=== PATIENT | female | born 1965 | race Hispanic/Latino ===

== ENCOUNTER 2017-10-05 21:25 | Emergency (ER) | payer BC, OTHER ==
[~2017-10-05] VITALS: Ht 157.5 cm; Wt 102.5 kg
[~2017-10-05 21:25] MED LIST: CELEXA PO; GLIPIZIDE PO; HUMALOG100 UNIT/1 SQ; LISINOPRIL10 MG PO; METFORMIN HCL500 MG PO; NAPROXEN250 MG PO; NORCO 7.5-3251 EACH PO
[2017-10-05] MEDS ORDERED: KETOROLAC TROMETHAMINE 30 MG/ML VIAL IV STA (22:04)
[2017-10-05] MEDS ORDERED: ONDANSETRON HCL INJ 2 MG/ML VIAL IV STA (22:04)
[2017-10-05] MEDS ORDERED: ALBUTEROL/IPRATROPIUM 3 ML NEB NEB ONE (22:15)
[2017-10-05] MEDS ORDERED: ASPIRIN 81 MG CHEW TAB PO ONE (22:15)
[2017-10-05] MEDS ORDERED: SODIUM CHLORIDE 0.9% 1000ML 1,000 ML IV SCH (22:30)
[2017-10-05 22:31] LABS: BASOPHILS # (AUTO) 0.1 (0.0-0.1); BASOPHILS % 0.8 % (0.0-1.0); EOSINOPHILS # (AUTO) 0.1 (0.0-0.4); EOSINOPHILS % 0.8 % (0.0-6.0); HEMOGLOBIN 12.7 g/dL (12.0-16.0); LYMPHOCYTES # (AUTO) 2.2 (1.0-3.2); LYMPHOCYTES % 28.6 % (18.0-39.1); MEAN CORPUSCULAR HEMOGLOBIN 29.6 pg (28-32); MEAN CORPUSCULAR HGB CONC 31.8 g/dL (31-35); MEAN CORPUSCULAR VOLUME 93.2 fL (81-99); MONOCYTES # (AUTO) 0.8 (0.2-0.8); MONOCYTES % 10.2 % (4.4-11.3); NEUTROPHILS # (AUTO) 4.7 (2.1-6.9); NEUTROPHILS % 59.3 % (38.7-80.0); PLATELET COUNT 222 x10e3/uL (140-360); RED BLOOD COUNT 4.29 x10e6/uL (3.6-5.1)
[2017-10-05 22:48] LABS: ALANINE AMINOTRANSFERASE 60 IU/L (0-55); ALBUMIN 3.9 g/dL (3.5-5.0); ALBUMIN/GLOBULIN RATIO 1.2 (0.8-2.0); ALKALINE PHOSPHATASE 59 IU/L (40-150); ANION GAP 12.8 mmol/L (8-16); BLOOD UREA NITROGEN 13 mg/dL (7-26); BUN/CREATININE RATIO 18 (6-25); CALCIUM 9.3 mg/dL (8.4-10.2); CARBON DIOXIDE 24 mmol/L (22-29); CHLORIDE 109 mmol/L (98-107); CREATINE KINASE 96 IU/L (29-168); CREATININE, SERUM 0.73 mg/dL (0.57-1.11); EST GLOMERULAR FILTRATION RATE > 60 ML/MIN (60-); GLUCOSE 185 mg/dL (74-118); POTASSIUM 3.8 mmol/L (3.5-5.1); SODIUM 142 mmol/L (136-145)
[2017-10-05 22:55] LABS: TROPONIN I 0.002 ng/mL (0-0.300)
--- NOTE | 2017-10-05 22:56 | Diagnostic Imaging Report ---
EXAM: CHEST 2 VIEWS, PA and lateral ORDER DATE: 10/05/2017 10:04 PM TIME STAMP ON EXAM: 2232 hours INDICATION: Cough, chest pain COMPARISON: PA and lateral view of the chest December 20, 2016 FINDINGS: LINES/TUBES: None LUNGS: No consolidations or edema. PLEURA: No effusions or pneumothorax. HEART AND MEDIASTINUM: Normal size and contour. BONES AND SOFT TISSUES: Lower cervical spine surgical hardware. Surgical clips upper abdomen seen on lateral view. IMPRESSION: No acute thoracic abnormality. Signed by: Dr. Sachi Harley M.D. on 10/05/2017 10:53 PM
[2017-10-05] MEDS ORDERED: METHYLPREDNISOLONE SOD SUCC 125 MG/2ML VIAL IV ONE (23:15)
[2017-10-05] MEDS ORDERED: SUCRALFATE1 GM PO (23:24)
[2017-10-05] MEDS ORDERED: GLIPIZIDE5 MG PO (23:24)
[2017-10-05] MEDS ORDERED: NOVOLOG100 UNIT/1 SC (23:24)
[2017-10-05] MEDS ORDERED: CITALOPRAM HBR20 MG PO (23:24)
[2017-10-05] MEDS ORDERED: ULTRAM50 MG PO (23:24)
[2017-10-05] MEDS ORDERED: GABAPENTIN100 MG PO (23:24)
[2017-10-05] MEDS ORDERED: OMEPRAZOLE40 MG PO (23:24)
[2017-10-06 01:27] VITALS: BP 147/65
== END 2017-10-06 01:28 | disposition home or self-care (01) ==
LOC: ER 21:25
DX: R07.89 Other chest pain (principal); R05 Cough; R11.2 Nausea with vomiting, unspecified; J20.9 Acute bronchitis, unspecified; I10 Essential (primary) hypertension; E11.9 Type 2 diabetes mellitus without complications; Z87.891 Personal history of nicotine dependence
CPT/HCPCS: 36415; 71020; 80053; 82550; 82553; 83880; 84484; 85025; 85379; 87400; 93005; 94640; 99284; J1885; J2405; J2930; J7030; 71046

== ENCOUNTER 2017-12-12 13:33 | Emergency (ER) | payer OTHER ==
[~2017-12-12] VITALS: Ht 157.5 cm; Wt 104.3 kg
[~2017-12-12 13:33] MED LIST changes: +CITALOPRAM HBR20 MG PO; +GABAPENTIN100 MG PO; +GLIPIZIDE5 MG PO; +NOVOLOG100 UNIT/1 SC; +OMEPRAZOLE40 MG PO; +SUCRALFATE1 GM PO; +ULTRAM50 MG PO
--- OUTSIDE RECORDS SUMMARY | 2017-12-12 13:37 | XMS REPORT ---
Author Author [facility] Address Unknown Phone Unavailable Care Team Providers Care Pin Drafting Machine Operator Name Role Phone LISA VARELA Unavailable Unavailable Problems This patient has no known problems. Allergies, Adverse Reactions, Alerts This patient has no known allergies or adverse reactions. Medications This patient has no known medications. Results Test Description Test Time Test Comments Text Results Atomic Results Result Comments CHEST 2 VIEWS [place] [address] [place], [place] [address] Patient Name: PREMA RASHEED MR #: [id number] : 1965 Age/Sex: 52/F Req #: [id number] Adm Physician: Ordered by: LISA VARELA MD Report #: [id number] Location: ER Room/Bed: Procedure: [id number] DX/CHEST 2 VIEWS Exam Date: 10/05/17 Exam Time: 2220 REPORT STATUS: Signed EXAM: CHEST 2 VIEWS, PA and lateral ORDER DATE: 10/05/2017 10:04 PM TIME STAMP ON EXAM: 2232 hours INDICATION: Cough, chest pain COMPARISON: PA and lateral view of the chest December 20, 2016 FINDINGS: LINES/TUBES: None LUNGS: No consolidations or edema. PLEURA: No effusions or pneumothorax. HEART AND MEDIASTINUM: Normal size and contour. BONES AND SOFT TISSUES: Lower cervical spine surgical hardware. Surgical clips upper abdomen seen on lateral view. IMPRESSION: No acute thoracic abnormality. Signed by: Dr. Juan Antonio Aquino M.D. on 10/05/2017 10:53 PM Dictated By: JUAN ANTONIO AQUINO MD 52 Transcribed By: CARLOS on 2252 COPY TO: LISA VARELA MD
--- OUTSIDE RECORDS SUMMARY | 2017-12-12 13:37 | XMS REPORT | Continuity of Care Document ---
Author Author [facility] Organization [facility] Address [address] [address] Phone Unavailable Care Team Providers Care Picture Enlarger Name Role Phone DESI STEELE MD PCP Insurance Providers Guarantor Prema Eldridge Address [address] [place] [address] Email [email or web address] Payer Miscellaneous Ppo Policy Number [id number] Subscriber's Name Prema Eldridge C Relationship 18 Self / Same As Patient Advance Directives Directive Response Recorded Date/Time Does the patient have an advance directive? No 12/22/16 1:23pm If yes, is advance directive on file with [facility]? No 11/29/10 8:09am If not on file with [facility] will patient provide a copy? Yes 10/05/17 10:24pm Do you have a Directive to Physician? No 10/05/17 10:24pm Do you have a Medical Power of Customer Advocate? No 10/05/17 10:24pm Do you have an out of hospital Do Not Resuscitate Order? No 10/05/17 10:24pm Do you have any special needs we should be aware of? No 10/05/17 10:24pm Do you have a support person here with you today? Yes 10/05/17 10:24pm Did patient receive Notice of Privacy Practices? Yes 10/05/17 10:24pm Did patient receive patient rights and responsibilities? Yes 10/05/17 10:24pm Problems No problem information available. Medications Current Home Medications Medication Dose Units Route Directions Days Qty Instructions Start Date Celexa Oral Daily UNKNOWN DOSE Citalopram Hydrobromide (Citalopram Hbr) 20 Mg Tablet 40 Mg Oral Daily Gabapentin 100 Mg Capsule 1 Cap Oral Twice A Day Glipizide Oral Twice A Day UNKNOWN DOSE Glipizide 5 Mg Tablet 5 Mg Oral Daily Hydrocodone Bit/Acetaminophen ([place] 7.5-325 Tablet) 1 Each Tablet 1-2 Ea Oral Every 6 Hours as needed for Pain Insulin Aspart (Novolog) 100 Unit/1 Ml Cartridge 30 Units Subcutaneously Twice A Day Insulin Lispro (Humalog) 100 Unit/1 Ml Cartridge 20 Units Sub-Q Twice A Day Lisinopril 10 Mg Tablet 10 Mg Oral Daily 30 Tab Metformin Hcl 500 Mg Tablet 1,000 Mg Oral Twice A Day 60 Tab Naproxen 250 Mg Tablet 500 Mg Oral Twice A Day Omeprazole 40 Mg Capsule.dr 1 Cap Oral Twice A Day Sucralfate 1 Gm Tablet 1 Gm Oral Twice A Day Tramadol Hcl (Ultram) 50 Mg Tablet 50 Mg Oral Every 6 Hours as needed for Pain Social History Social History Problem Response Recorded Date/Time Onset Date Status Hx Psychiatric Problems No 12/22/2016 1:23pm Not Applicable Not Applicable Smoking Status Start Date Stop Date Former smoker Hospital Discharge Instructions No hospital discharge instruction information available. Plan of Care Discharge Date 10/06/17 1:28am Disposition HOME, SELF-CARE Condition at Discharge Stable Instructions/Education Provided Bronchitis (Acute) - Adult Forms Provided Work/School Excuse Prescriptions See Medication Section Referrals DESI STEELE MD Order Date: Call for an appointment Address: [address] [place] [id number] Additional Instructions/Education FOLLOW UP WITH YOUR PRIMARY CARE DOCTOR ON MONDAY ADMINISTER MEDICATIONS ORDERED BY DOCTOR GARCIA IF SYMPTOMS WORSEN Functional Status No functional status information available. Allergies, Adverse Reactions, Alerts Allergen Type Severity Reaction Status Last Updated Morphine Allergy Unknown itch Active 12/21/16 TUNAFISH Allergy Unknown rash, diarrhea Active 12/21/16 Immunizations No immunization information available. Vital Signs Acute Vital Signs Vital Response Date/Time Temperature (Fahrenheit) 99.7 degrees F (97.6 - 99.5) 10/06/2017 1:27am Pulse Pulse Rate (adult) 94 bpm (60 - 90) 10/06/2017 1:27am Respiratory Rate 18 bpm (12 - 24) 10/06/2017 1:27am Blood Pressure 147/65 mm Hg 10/06/2017 1:27am Height 5 ft 2 in 10/05/2017 9:33pm Weight 226 lb 10/05/2017 9:33pm Body Mass Index 41.3 kg/m^2 10/05/2017 9:33pm Results Laboratory Results Test Name Result Units Flags Reference Collection Date/Time Result Date/ Time Comments Prothrombin Time 11.8 seconds L 11.9-14.5 12/20/2016 11:40am 12/20/2016 12:07pm Prothromb Time International Ratio 0.83 12/20/2016 11:40am 2016 12:07pm Oral Anticoagulant Therapy INR Values: 1. Low Intensity Therapy 1.5 - 2.0 2. Moderate Intensity Therapy 2.0 - 3.0 3. High Intensity Therapy(1) 2.5 - 3.5 4. High Intensity Therapy(2) 3.0 - 4.0 5. Panic Value INR > 5.0 Activated Partial Thromboplast Time 26.3 seconds 23.8-35.5 12/20/2016 11 :40am 12/20/2016 12:07pm Bedside Glucose 133 mg/dL H 70-120 12/23/2016 7:44am 12/23/2016 7:52am Meter ID: [id number] White Blood Count 7.83 x10e3/uL 4.8-10.8 10/05/2017 9:50pm 10/05/2017 10:33pm Red Blood Count 4.29 x10e6/uL 3.6-5.1 10/05/2017 9:50pm 10/05/2017 10: 33pm Hemoglobin 12.7 g/dL 12.0-16.0 10/05/2017 9:50pm 10/05/2017 10:33pm Hematocrit 40.0 % 34.2-44.1 10/05/2017 9:50pm 10/05/2017 10:33pm Mean Corpuscular Volume 93.2 fL 81-99 10/05/2017 9:50pm 10/05/2017 10: 33pm Mean Corpuscular Hemoglobin 29.6 pg 28-32 10/05/2017 9:50pm 10/05/2017 10:33pm Mean Corpuscular Hemoglobin Concent 31.8 g/dL 31-35 10/05/2017 9:50pm 10/05/2017 10:33pm Red Cell Distribution Width 13.0 % 11.7-14.4 10/05/2017 9:50pm 2017 10:33pm Platelet Count 222 x10e3/uL 140-360 10/05/2017 9:50pm 10/05/2017 10: 33pm Neutrophils (%) (Auto) 59.3 % 38.7-80.0 10/05/2017 9:50pm 10/05/2017 10 :33pm Lymphocytes (%) (Auto) 28.6 % 18.0-39.1 10/05/2017 9:50pm 10/05/2017 10 :33pm Monocytes (%) (Auto) 10.2 % 4.4-11.3 10/05/2017 9:50pm 10/05/2017 10: 33pm Eosinophils (%) (Auto) 0.8 % 0.0-6.0 10/05/2017 9:50pm 10/05/2017 10: 33pm Basophils (%) (Auto) 0.8 % 0.0-1.0 10/05/2017 9:50pm 10/05/2017 10: 33pm IM GRANULOCYTES % 0.3 % 0.0-1.0 10/05/2017 9:50pm 10/05/2017 10:33pm Neutrophils # (Auto) 4.7 2.1-6.9 10/05/2017 9:50pm 10/05/2017 10: 33pm Lymphocytes # (Auto) 2.2 1.0-3.2 10/05/2017 9:50pm 10/05/2017 10: 33pm Monocytes # (Auto) 0.8 0.2-0.8 10/05/2017 9:50pm 10/05/2017 10:33pm Eosinophils # (Auto) 0.1 0.0-0.4 10/05/2017 9:50pm 10/05/2017 10: 33pm Basophils # (Auto) 0.1 0.0-0.1 10/05/2017 9:50pm 10/05/2017 10:33pm Absolute Immature Granulocyte (auto 0.02 x10e3/uL 0-0.1 10/05/2017 9: 50pm 10/05/2017 10:33pm D-Dimer Quantitative (PE/DVT) 0.21 ug/mLFEU 0.00-0.45 10/05/2017 9:50pm 10/05/2017 10:44pm As with all in vitro diagnostic tests, the test results should be interpreted by the physician in conjunction with clinical findings and other test results. Test results are reported in NEW D-dimer units(ug/mLFEU). Sodium Level 142 mmol/L 136-145 10/05/2017 9:50pm 10/05/2017 10:49pm Potassium Level 3.8 mmol/L 3.5-5.1 10/05/2017 9:50pm 10/05/2017 10: 49pm Chloride Level 109 mmol/L H 98-107 10/05/2017 9:50pm 10/05/2017 10:49pm Influenza Virus Types A,B Antigen NEGATIVE NEGATIVE 10/05/2017 9:50pm 10/06/2017 12:19am Carbon Dioxide Level 24 mmol/L 22-10/05/2017 9:50pm 10/05/2017 10: 49pm Anion Gap 12.8 mmol/L 8-16 10/05/2017 9:50pm 10/05/2017 10:49pm Blood Urea Nitrogen 13 mg/dL 7-26 10/05/2017 9:50pm 10/05/2017 10:49pm Creatinine 0.73 mg/dL 0.57-1.11 10/05/2017 9:50pm 10/05/2017 10:49pm BUN/Creatinine Ratio 18 6-25 10/05/2017 9:50pm 10/05/2017 10:49pm Estimat Glomerular Filtration Rate > 60 ML/MIN 60- 10/05/2017 9:50pm 10:49pm Ranges were taken from the National Kidney Disease Education Program and the National Kidney Foundation literature. Reference ranges: 60 or greater: Normal 16-59 (for 3 consecutive months): Chronic kidney disease 15 or less: Kidney failure Glucose Level 185 mg/dL H 74-118 10/05/2017 9:50pm 10/05/2017 10:49pm Calcium Level 9.3 mg/dL 8.4-10.2 10/05/2017 9:50pm 10/05/2017 10:49pm Total Bilirubin 0.4 mg/dL 0.2-1.2 10/05/2017 9:50pm 10/05/2017 10:49pm Aspartate Amino Transf (AST/SGOT) 47 IU/L H 5-34 10/05/2017 9:50pm 10/05 10:49pm Alanine Aminotransferase (ALT/SGPT) 60 IU/L H 0-55 10/05/2017 9:50pm 09/2017 10:49pm Total Protein 7.2 g/dL 6.5-8.1 10/05/2017 9:50pm 10/05/2017 10:49pm Albumin 3.9 g/dL 3.5-5.0 10/05/2017 9:50pm 10/05/2017 10:49pm Globulin 3.3 g/dL 2.3-3.5 10/05/2017 9:50pm 10/05/2017 10:49pm Albumin/Globulin Ratio 1.2 0.8-2.0 10/05/2017 9:50pm 10/05/2017 10: 49pm Alkaline Phosphatase 59 IU/L 40-150 10/05/2017 9:50pm 10/05/2017 10: 49pm B-Type Natriuretic Peptide 15.6 pg/mL 0-100 10/05/2017 9:50pm 2017 10:55pm Creatine Kinase 96 IU/L 29-168 10/05/2017 9:50pm 10/05/2017 10:49pm Creatine Kinase MB 2.50 ng/mL 0.00-5.00 10/05/2017 9:50pm 10/05/2017 10 :55pm Troponin I 0.002 ng/mL 0-0.300 10/05/2017 9:50pm 10/05/2017 10:55pm Procedures Procedure Status Date Provider(s) SP BONE ALGRFT STRUCT ADD-ON Completed 12/22/16 JAKE BASS MD NECK SPINE FUSE&REMOV BEL C2 Completed 12/22/16 JAKE BASS MD X-ray of chest, two views Active 12/20/16 JAKE BASS MD X-ray of chest, two views Active 10/05/17 LISA VARELA MD Encounters Encounter Location Arrival/Admit Date Discharge/Depart Date Attending Provider Registered Emergency Room [facility] 10/05/17 9:25pm LISA VARELA MD Discharged Inpatient (obs) [facility] 12/22/16 12:47pm 9:27am JAKE BASS MD
--- OUTSIDE RECORDS SUMMARY | 2017-12-12 13:37 | XMS REPORT ---
Author Organization Unknown Address [address] [place] [address] Phone [phone] Care Team Providers Care Truck Engine Assembler Name Role Phone DR. FLY BLAKE 3 [phone] Allergies Code Code System Name Reaction Severity Status Onset 7052 RxNorm Morphine Active Tuna Oil Active Medications Name Status Start Date Stop Date atorvastatin 10 mg tablet Active Not available Augmentin 875 mg-125 mg tablet Take 1 tablet every 12 hours by oral route as directed for 10 days. Active Not available azithromycin 250 mg tablet Completed 10/09/2017 BD Ultra-Fine Lorna Pen Needle Active Not available BD Ultra-Fine Lorna Pen Needle 32 gauge x 5/32" Active Not available Bromfed DM 2 mg-30 mg-10 mg/5 mL syrup Take 10 mL every 6-8 hours by oral route as needed for 5 days. Completed 10/09/2017 Cheratussin AC 10 mg-100 mg/5 mL oral liquid 1 TEASPOON EVERY 6 HRS PRN - FROM ER Completed 11/22/2017 citalopram 40 mg tablet Active Not available estradiol 0.01% (0.1 mg/gram) vaginal cream Active Not available fluticasone 50 mcg/actuation nasal spray,suspension [place] 1 spray twice a day by intranasal route as directed for 14 days. Active Not available gabapentin 100 mg capsule Take 1 capsule every day by oral route. Active Not available glipizide 5 mg tablet Active Not available hydroxyzine HCl 25 mg tablet Take 1 tablet every day by oral route at bedtime. Active Not available levofloxacin 500 mg tablet QD - FROM ER Completed 10/16/2017 lisinopril 10 mg tablet Active Not available metformin 1,000 mg tablet Active Not available xqhhnygd-hqxkjcztn-obykhylsk 3.5 mg-10,000 unit/mL-1 % ear drops,susp INSTILL 4 DROPS INTO AFFECTED EAR(S) BY OTIC ROUTE 3 TIMES PER DAY FOR 7 DAYS Active Not available Novolog Flexpen U-100 Insulin aspart 100 unit/mL subcutaneous Active Not available omeprazole 40 mg capsule,delayed release Take 1 capsule every day by oral route. Active Not available prednisone 20 mg tablet QD - FROM ER Completed 10/16/2017 ProAir HFA 90 mcg/actuation aerosol inhaler Active Not available sucralfate 1 gram tablet Take 1 tablet every day by oral route. Active Not available sulfamethoxazole 800 mg-trimethoprim 160 mg tablet Completed 12/06/2017 Tessalon Perles 100 mg capsule Take 1 capsule 3 times a day by oral route as needed for 10 days. Active Not available Tradjenta 5 mg tablet Active Not available tramadol 50 mg tablet Take 1 tablet twice a day by oral route. Active Not available Problems Name Status Onset Date Source Type 2 Diabetes Mellitus Active 09/19/2017 Major Depressive Disorder Active 09/19/2017 Benign Essential Hypertension Active 09/19/2017 Gastroesophageal Reflux Disease Active 09/19/2017 Asthma Active 10/16/2017 Procedures Date Name Performed by 09/04/2016 Other Information not available 09/04/2015 Other Information not available 09/04/2015 Colonoscopy Notes: REPEAT IN 5 YRS PER PT Information not available Neck Spine Disk Surgery Information not available Back Surgery Information not available Appendectomy Information not available Cholecystectomy Information not available Hernia Repair Notes: X3 Information not available Partial Hysterectomy Information not available Carpal Tunnel Surgery Notes: BOTH HANDS Information not available Eye Surgery Notes: BOTH Information not available 10/16/2017 CT, Abdomen + Pelvis, W/ Contrast [facility] [address] [address] (Work [address]) Notes: HEARING IMPLANT (RIGHT) TENDON REPAIR (LEFT ARM) Lab Results Date Name Specimen Result Interpretation Description Value Range Status Address 09/19/2017 CBC W/ Auto Diff Wbc 6.46 x10*3/L 3.98-10.04 x10*3/ L Final [facility]: [address] Rbc 4.38 10*12/L 3.93-5.22 10*12/L Final [facility]: [address] Hemoglobin 13.00 g/dL 11.20-15.70 g/dL Final [facility]: [address] Hematocrit 40.8 % 34.1-44.9 % Final [facility]: [address] [place] Mcv 93.2 fL 80.0-100.0 fL Final [facility]: [address] [place] Mch 29.7 pg 25.6-32.2 pg Final [facility]: [address] [place] Low Mchc 31.9 g/dL 32.2-35.5 g/dL Final [facility]: [address] [place] RDW-SD 43.7 fL 36.4-46.3 fL Final [facility] [facility] Count 243.0 k/uL 182.0-369.0 k/uL Final [facility]: [address] [place] High Mpv 12.9 fL 7.5-11.5 fL Final [facility]: [address] [place] Neut% 53.6 % 34.0-71.1 % Final [facility]: [address] [place] Lymph% 34.7 % 19.3-51.7 % Final [facility]: [address] [place] Mon% 10.4 % 4.7-12.5 % Final [facility]: [address] [place] Low Eos% 0.5 % 0.7-5.8 % Final [facility]: [address] [facility] Baso% 0.8 % 0.1-1.2 % Final [facility]: [address] [place] Neut# 3.5 x10*3/L 1.6-6.1 x10*3/L Final [facility]: [address] [place] Lymph# 2.2 x10*3/L 1.2-3.7 x10*3/L Final [facility]: [address] [place] Mon# 0.7 x10*3/L 0.2-0.9 x10*3/L Final [facility]: [facility] [facility] Eos# 0.03 x10*3/L 0.04-0.36 x10*3/L Final [facility]: [address] [place] [address] [place] Baso# 0.05 x10*3/L 0.01-0.08 x10*3/L Final [facility]: [address] Deep[address] [place] 09/19/2017 CMP, Serum or Plasma Alt 49 U/L 0-55 U/L Final [facility]: [address] [place] High Ast 37 U/L 5-34 U/L Final [facility]: [facility] Low Bun 7.9 mg/dL 9.8-20.1 mg/dL Final [facility]: [address] Alk Phos 60 unit/L 40-150 unit/L Final [facility]: [address] [place] High Glucose 173 mg/dL 70-99 mg/dL Final [facility]: [address] Albumin 3.7 g/dL 3.5-5.0 g/dL Final [facility]: [address] Creatinine 0.69 mg/dL 0.57-1.11 mg/dL Final [facility]: [address] eGFR Non- >60 mL/min/1.73m2 >60 mL/min/ 1.73m2 Final [facility]: [address] Total Bilirubin 0.4 mg/dL 0.2-1.2 mg/dL Final [facility]: [address] eGFR - >60 mL/min/1.73m2 >60 mL/min/1.73m2 Final [facility]: [address] Sodium 137 mEq/L 136-145 mEq/L Final [facility]: [address] Potassium 4.3 mEq/L 3.5-5.1 mEq/L Final [facility]: [address] Chloride 101 mmol/L 98-107 mmol/L Final [facility]: [address] Total Protein 6.8 g/dL 6.4-8.3 g/dL Final [facility]: [address] [place] [address], [place] Calcium 9.5 mg/dL 8.4-10.2 mg/dL Final [facility]: [address] [place] [address], [place] Co2 24.7 mmol/L 22.0-29.0 mmol/L Final [facility]: [address] [place] [address], [place] Anion Gap 11 calc Final [facility]: [address] [place] [address], [place] 09/19/2017 Lipid Panel, Serum Hdl 40 mg/dL 40-60 mg/dL Final [facility]: [address] [place] [address], [place] High Triglyceride 288 mg/dL 0-149 mg/dL Final [facility]: [address] [place] [address], [place] VLDL Calc. 58 mg/dL Final [facility]: [address] cholesterol/HDL Ratio 5.8 mg/dL Final [facility]: [address] High non-HDL Cholesterol Calc. 190 mg/dL 0-160 mg/dL Final [facility]: [address] High Cholesterol 230 mg/dL 0-199 mg/dL Final [facility]: [address] High LDL Calc. 132 mg/dL 0-130 mg/dL Final [facility]: [address] [place] [address], [place] 09/19/2017 HbA1C (Hemoglobin a1C), Blood High A1C W/eag 9.7 % 1.0- 5.7 % Final [facility] Laboratory: [address] Average Blood Glucose 232 mg/dL Final [facility]: [address] [place] [address], [place] Rapid Strep Group a, Throat Strep negative [facility] : [address] [place] [address] Past Encounters 12/06/2017 Acute Sinusitis; Otalgia; Pain in Throat; Body Mass Index 40+ - Severely Obese Fly Jackson MD: [address] [place] [phone], Ph. 11/29/2017 Type II Diabetes Mellitus Uncontrolled; Mixed Hyperlipidemia Due to Type 2 Diabetes Mellitus Fly Jackson MD: [address] [place] [phone], Ph. 10/16/2017 Type II Diabetes Mellitus Uncontrolled; Mixed Hyperlipidemia Due to Type 2 Diabetes Mellitus; Left Lower Quadrant Pain; Asthma; Body Mass Index 30+ - Obesity Fly Jackson MD: [address] [place] [address], Ph. 10/09/2017 Major Depressive Disorder; Depressive Disorder; Asthmatic Bronchitis; Type II Diabetes Mellitus Uncontrolled; Hyperlipidemia Tyrone Correia MD: [address] [place] [address], Ph. 09/19/2017 Benign Essential Hypertension; Type 2 Diabetes Mellitus; Gastroesophageal Reflux Disease; Major Depressive Disorder; Upper Respiratory Infection; Body Mass Index 40+ - Severely Obese Fly Jackson MD: [address] [place] [address], Ph. [phone] Social History Smoking Status Former Smoker (1/2 PPD) Vaccine List Vaccine Type influenza, unspecified formulation 07/05/2017 Plan of Care Patient Instructions continue all meds f/u Dr Blake 1 week Reminders Provider Appointments None recorded. Lab None recorded. Referral None recorded. Procedures None recorded. Surgeries None recorded. Imaging None recorded. Vitals 12/06/2017 04:30PM Est Patient Height Weight BMI Blood Pressure 5 ft 2.9 in 233 lbs 41.4 kg/m2 136/80 mm[Hg] 10/16/2017 10:15AM Work In Same Day Height Weight BMI Blood Pressure 5 ft 2.9 in 224 lbs 39.8 kg/m2 (1) 148/72 mm[Hg] (2) 130/76 mm[Hg] 10/09/2017 01:00PM Est Patient Height Weight Blood Pressure 5 ft 2.9 in 140/72 mm[Hg] 09/19/2017 10:30AM New Patient Height Weight BMI Blood Pressure 5 ft 2.9 in 227 lbs 40.3 kg/m2 130/80 mm[Hg]
[2017-12-12] MEDS: DEXAMETHASONE SOD PHOS 10 MG/1 ML VIAL INJ ONE (15:15)
[2017-12-12] MEDS: METAXALONE 800 MG TAB PO ONE (15:15)
[2017-12-12] MEDS: ONDANSETRON HCL 4 MG ORAL DISINTEGRATING TAB PO ONE (15:15)
[2017-12-12] MEDS: KETOROLAC TROMETHAMINE 60 MG/2 ML VIAL IM ONE (15:15)
[2017-12-12 16:42] VITALS: BP 145/63
== END 2017-12-12 16:56 | disposition home or self-care (01) ==
LOC: ER 13:34
DX: G44.219 Episodic tension-type headache, not intractable (principal); E11.9 Type 2 diabetes mellitus without complications; Z79.4 Long term (current) use of insulin; I10 Essential (primary) hypertension
CPT/HCPCS: 99282; J1100; J1885

== ENCOUNTER 2017-12-14 05:55 | Emergency (ER) | payer OTHER ==
[~2017-12-14] VITALS: Ht 157.5 cm; Wt 104.3 kg
--- OUTSIDE RECORDS SUMMARY | 2017-12-14 05:58 | XMS REPORT | Continuity of Care Document ---
Author Author [facility] Organization [facility] Address [address] [place] [address] Phone Unavailable Care Team Providers Care Camera Assembler Name Role Phone DESI STEELE MD PCP Insurance Providers Guarantor Prema Eldridge Address [address] [place] [address] Email [email or web address] Payer Miscellaneous Ppo Policy Number [id number] Subscriber's Name Prema Eldridge C Relationship 18 Self / Same As Patient Advance Directives Directive Response Recorded Date/Time Does the patient have an advance directive? No 12/22/16 1:23pm If yes, is advance directive on file with [facility]? No 11/29/10 8:09am If not on file with [facility] will patient provide a copy? Yes 10/05/17 10:24pm Do you have a Directive to Physician? No 12/12/17 2:14pm Do you have a Medical Power of Hotel Breakfast Attendant? No 12/12/17 2:14pm Do you have an out of hospital Do Not Resuscitate Order? No 12/12/17 2:14pm Do you have any special needs we should be aware of? No 12/12/17 2:14pm Do you have a support person here with you today? Yes 12/12/17 2:14pm Did patient receive Notice of Privacy Practices? Yes 12/12/17 2:14pm Did patient receive patient rights and responsibilities? Yes 12/12/17 2:14pm Problems No problem information available. Medications Current Home Medications Medication Dose Units Route Directions Days Qty Instructions Start Date Celexa Oral Daily UNKNOWN DOSE Citalopram Hydrobromide (Citalopram Hbr) 20 Mg Tablet 40 Mg Oral Daily Gabapentin 100 Mg Capsule 1 Cap Oral Twice A Day Glipizide Oral Twice A Day UNKNOWN DOSE Glipizide 5 Mg Tablet 5 Mg Oral Daily Hydrocodone Bit/Acetaminophen (Adah 7.5-325 Tablet) 1 Each Tablet 1-2 Ea [...] Applicable Smoking Status Start Date Stop Date Never Smoker Hospital Discharge Instructions No hospital discharge instruction information available. Plan of Care Discharge Date 12/12/17 4:56pm Disposition HOME, SELF-CARE Condition at Discharge Stable Instructions/Education Provided Headache Tension Headache Forms Provided Work/School Excuse Prescriptions See Medication Section Referrals DESI STEELE MD Order Date: Call for an appointment Address: [address] [place] [id number] Additional Instructions/Education Take medications as directed. Follow up with Primary Care Provider. Return to ER as needed. Functional Status No functional status information available. Allergies, Adverse Reactions, Alerts Allergen Type Severity Reaction Status Last Updated Morphine Allergy Unknown itch Active 12/21/16 TUNAFISH Allergy Unknown rash, diarrhea Active 12/21/16 Immunizations No immunization information available. Vital Signs Acute Vital Signs Vital Response Date/Time Temperature (Fahrenheit) 99.7 degrees F (97.6 - 99.5) 10/06/2017 1:27am Pulse Pulse Rate (adult) 80 bpm (60 - 90) 12/12/2017 4:42pm Respiratory Rate 20 bpm (12 - 24) 12/12/2017 4:42pm Blood Pressure 145/63 mm Hg 12/12/2017 4:42pm Height 5 ft 2 in 12/12/2017 1:51pm Weight 230 lb 12/12/2017 1:51pm Body Mass Index 42.1 kg/m^2 12/12/2017 1:51pm Results Laboratory Results Test Name Result Units Flags Reference Collection Date/Time Result Date/ Time Comments White Blood Count 7.83 x10e3/uL 4.8-10.8 10/05/2017 [...] 10/05/2017 10:49pm Blood Urea Nitrogen 13 mg/dL 7-10/05/2017 9:50pm 10/05/2017 10:49pm Creatinine 0.73 mg/dL 0.57-1.11 [...] 10/05/2017 10:55pm Procedures Procedure Status Date Provider(s) X-ray of chest, two views Active 10/05/17 LISA VARELA MD Encounters Encounter Location Arrival/Admit Date Discharge/Depart Date Attending Provider Departed Emergency Room [facility] 12/12/17 1:34pm 4:56pm LISSETH YEBOAH MD Departed Emergency Room [facility] 10/05/17 9:25pm 1:28am LISA VARLEA MD
--- OUTSIDE RECORDS SUMMARY | 2017-12-14 05:59 | XMS REPORT ---
Author Organization Unknown Address [address] [place] [address] Phone [phone] Care Team Providers Care Word Processor Operator Name Role Phone DR. FLY BLAKE 3 [phone] Allergies Code Code System Name Reaction Severity Status Onset 7052 RxNorm Morphine Active Tuna Oil Active NKDA Medications Name Status Start Date Stop Date amoxicillin 875 mg-potassium clavulanate 125 mg tablet Active Not available atorvastatin 10 mg tablet Active Not available azithromycin 250 mg tablet Completed 10/09/2017 BD Ultra-Fine Lorna Pen Needle Active Not available BD Ultra-Fine Lorna Pen Needle 32 gauge x 5/32" Active Not available benzonatate 100 mg capsule Active Not available Bromfed DM 2 mg-30 mg-10 mg/5 mL syrup Take 10 mL every 6-8 hours by oral route as needed for 5 days. Completed 10/09/2017 Cheratussin AC 10 mg-100 mg/5 mL oral liquid 1 TEASPOON EVERY 6 HRS PRN - FROM ER Completed 11/22/2017 citalopram 40 mg tablet Active Not available estradiol 0.01% (0.1 mg/gram) vaginal cream qd Active Not available fluticasone 50 mcg/actuation nasal spray,suspension Active Not available gabapentin 100 mg capsule Take 1 capsule every day by oral route. Active Not available glipizide 5 mg tablet Active Not available hydroxyzine HCl 25 mg tablet Take 1 tablet every day by oral route at bedtime. Active Not available ketorolac 10 mg tablet Take 1 tablet every 6 hours by oral route as needed. Active Not available levofloxacin 500 mg tablet QD - FROM ER Completed 10/16/2017 lisinopril 10 mg tablet Active Not available metaxalone 800 mg tablet Take 1 tablet every 8 hours by oral route as needed. Active Not available metformin 1,000 mg tablet Active Not available vgerlwyb-hijqxjjzc-vhcfhsgmu 3.5 mg-10,000 unit/mL-1 % ear drops,susp Active Not available Novolog Flexpen U-100 Insulin aspart 100 unit/mL subcutaneous Active Not available omeprazole 40 mg capsule,delayed release Take 1 capsule every day by oral route. Active Not available prednisone 20 mg tablet QD - FROM ER Completed 10/16/2017 ProAir HFA 90 mcg/actuation aerosol inhaler Active Not available prochlorperazine 10 mg tablet Take 1 tablet every 6 hours by oral route as needed. Active Not available sucralfate 1 gram tablet Take 1 tablet every day by oral route. Active Not available sulfamethoxazole 800 mg-trimethoprim 160 mg tablet Completed 12/06/2017 Tradjenta 5 mg tablet Take 1 tablet every day by oral route as directed for 90 days. Active Not available tramadol 50 mg tablet [...] W/ Contrast [facility] [address] [address] (Work Place) Notes: HEARING IMPLANT (RIGHT) TENDON REPAIR (LEFT ARM) Lab Results Date Name Specimen Result Interpretation Description Value Range Status Address 11/29/2017 HbA1C (Hemoglobin a1C), Blood High Hemoglobin a1C 9.4 % of total HGB <5.7 % of total HGB Final [facility]: [address] EAG (mg/dL) 223 (calc) Final [facility]: [address] EAG (mmol/L) 12.4 (calc) Final [facility]: [address] 11/29/2017 Lipid Panel, Serum Normal Cholesterol, Total 139 mg/dL <200 mg/dL Final [facility]: [address] [place] Low HDL Cholesterol 40 mg/dL >50 mg/dL Final [facility]: [address] [place] High Triglycerides 189 mg/dL <150 mg/dL Final [facility]: [address] [place] Normal LDL-cholesterol 73 mg/dL (calc) Final [facility]: [address] [place] Normal Chol/hdlc Ratio 3.5 (calc) <5.0 (calc) Final [facility]: [address] [place] Normal Non HDL Cholesterol 99 mg/dL (calc) <130 mg/dL (calc) Final [facility]: [address] [place] 11/29/2017 CBC W/ Auto Diff Normal White Blood Cell Count 5.3 thousand/uL 3.8-10.8 thousand/uL Final [facility]: [address] [place] Normal Red Blood Cell Count 4.43 million/uL 3.80-5.10 million/ uL Final [facility]: [address] [place] Normal Hemoglobin 13.1 g/dL 11.7-15.5 g/dL Final [facility]: [address] [place] Normal Hematocrit 40.8 % 35.0-45.0 % Final [facility]: [address] [place] Normal Mcv 92.1 fL 80.0-100.0 fL Final [facility]: [address] [place] Normal Mch 29.6 pg 27.0-33.0 pg Final [facility]: [address] [place] Normal Mchc 32.1 g/dL 32.0-36.0 g/dL Final [facility]: [address] [place] Normal Rdw 12.8 % 11.0-15.0 % Final [facility]: [address] [place] Normal Platelet Count 213 thousand/uL 140-400 thousand/uL Final [facility]: [address] [place] Normal Mpv 12.2 fL 7.5-12.5 fL Final [facility]: [address], [place] Normal Absolute Neutrophils 3074 cells/uL 8798-7876 cells/uL Final [facility]: [address], [place] Absolute Band Neutrophils Preliminary [facility]: [address], [place] Absolute Metamyelocytes Preliminary [facility]: [address], [place] Absolute Myelocytes Preliminary [facility]: [address], [place] Absolute Promyelocytes Preliminary [facility]: [address], [place] Normal Absolute Lymphocytes 1855 cells/uL 850-3900 cells/uL Final [facility]: [address], [place] Normal Absolute Monocytes 281 cells/uL 200-950 cells/uL Final [facility]: [address], [place] Normal Absolute Eosinophils 58 cells/uL 15-500 cells/uL Final [facility]: [address], [place] Normal Absolute Basophils 32 cells/uL 0-200 cells/uL Final [facility]: [address], [place] Absolute Blasts Preliminary [facility]: [address], [place] Absolute Nucleated RBC Preliminary [facility]: [address], [place] Normal Neutrophils 58 % Final [facility]: [address], [place] Band Neutrophils Preliminary [facility]: [address], [place] Metamyelocytes Preliminary [facility]: [address], [place] Myelocytes Preliminary [facility]: [address], [place] Promyelocytes Preliminary [facility]: [address], [place] Normal Lymphocytes 35.0 % Final [facility]: [address], [place] Reactive Lymphocytes Preliminary [facility]: [address], [place] Normal Monocytes 5.3 % Final [facility]: [address], [place] Normal Eosinophils 1.1 % Final [facility]: [address], [place] Normal Basophils 0.6 % Final [facility]: [address], [place] Blasts Preliminary [facility] : [address], [place] Nucleated RBC Preliminary [facility]: [address], [place] Comment(s) Preliminary [facility]: [address] [place] 11/29/2017 CMP, Serum or Plasma High Glucose 268 mg/dL 65-99 mg/ dL Final [facility] [address] [facility] Urea Nitrogen (BUN) 11 mg/dL 7-25 mg/dL Final [facility]: [address] [place] [address] Normal Creatinine 0.58 mg/dL 0.50-1.05 mg/dL Final [facility]: [address] Normal eGFR Non-afr. Chilean 106 mL/min/1.73m2 > or=60 mL/min /1.73m2 Final [facility]: [address] Normal eGFR 123 mL/min/1.73m2 > or=60 mL/min/ 1.73m2 Final [facility]: [address] BUN/creatinine Ratio not applicable (calc) 6-22 (calc) Final [facility]: [address] Normal Sodium 138 mmol/L 135-146 mmol/L Final [facility]: [address] Normal Potassium 3.9 mmol/L 3.5-5.3 mmol/L Final [facility]: [address] Normal Chloride 102 mmol/L 98-110 mmol/L Final [facility]: [address] Normal Carbon Dioxide 24 mmol/L 20-31 mmol/L Final [facility]: [address] Normal Calcium 9.3 mg/dL 8.6-10.4 mg/dL Final [facility]: [address] Normal Protein, Total 6.6 g/dL 6.1-8.1 g/dL Final [facility]: [address] Normal Albumin 4.2 g/dL 3.6-5.1 g/dL Final [facility]: [address] Normal Globulin 2.4 g/dL (calc) 1.9-3.7 g/dL (calc) Final [facility]: [address] [facility] Albumin/globulin Ratio 1.8 (calc) 1.0-2.5 (calc) Final [facility]: [address] [facility] Normal Bilirubin, Total 0.3 mg/dL 0.2-1.2 mg/dL Final [facility]: [address] [facility] Normal Alkaline Phosphatase 56 U/L 33-130 U/L Final [facility]: [address] [facility] Normal Ast 25 U/L 10-35 U/L Final [facility]: [address] [place] [address] High Alt 37 U/L 6-29 U/L Final [facility]: [address] [facility] 09/19/2017 CBC W/ Auto Diff Wbc 6.46 x10*3/L 3.98-10.04 x10*3/ L Final [facility]: [address] Rbc 4.38 10*12/L 3.93-5.22 10*12/L Final [facility]: [address] [place] [address] Hemoglobin 13.00 g/dL 11.20-15.70 g/dL Final [facility]: [address] [place] [address] Hematocrit 40.8 % 34.1-44.9 % Final [facility]: [address] [facility] Mcv 93.2 fL 80.0-100.0 fL Final [facility]: [address] [place] [address] Mch 29.7 pg 25.6-32.2 pg Final [facility]: [address] [facility] Low Mchc 31.9 g/dL 32.2-35.5 g/dL Final [facility]: [address] RDW-SD 43.7 fL 36.4-46.3 fL Final [facility]: [address] Platelet Count 243.0 k/uL 182.0-369.0 k/uL Final [facility]: [address] High Mpv 12.9 fL 7.5-11.5 fL Final [facility]: [address] [facility] Neut% 53.6 % 34.0-71.1 % Final [facility]: [address] [place] Lymph% 34.7 % 19.3-51.7 % Final [facility]: [address] [place] Mon% 10.4 % 4.7-12.5 % Final [facility]: [address] [place] Low Eos% 0.5 % 0.7-5.8 % Final [facility]: [address], [place] Baso% 0.8 % 0.1-1.2 % Final [facility]: [address] [place] Neut# 3.5 x10*3/L 1.6-6.1 x10*3/L Final [facility]: [address] [place] Lymph# 2.2 x10*3/L 1.2-3.7 x10*3/L Final [facility]: [address] [facility] Mon# 0.7 x10*3/L 0.2-0.9 x10*3/L Final [facility]: [address] [facility] Low Eos# 0.03 x10*3/L 0.04-0.36 x10*3/L Final [facility]: [address] [facility] Baso# 0.05 x10*3/L 0.01-0.08 x10*3/L Final [facility]: [address] [facility] 09/19/2017 CMP, Serum or Plasma Alt 49 U/L 0-55 U/L Final [facility]: [address] [facility] High Ast 37 U/L 5-34 U/L Final [facility]: [address] [facility] Low Bun 7.9 mg/dL 9.8-20.1 mg/dL Final [facility]: [address] [facility] Alk Phos 60 unit/L 40-150 unit/L Final [facility]: [address] [facility] High Glucose 173 mg/dL 70-99 mg/dL Final [facility]: [address] [facility] Albumin 3.7 g/dL 3.5-5.0 g/dL Final [facility]: [address], [place] Creatinine 0.69 mg/dL 0.57-1.11 mg/dL Final [facility]: [address], [place] eGFR Non- >60 mL/min/1.73m2 >60 mL/min/ 1.73m2 Final [facility]: [address] [facility] Total Bilirubin 0.4 mg/dL 0.2-1.2 mg/dL Final [facility]: [address] [place] [address], [place] eGFR - >60 mL/min/1.73m2 >60 mL/min/1.73m2 Final [facility]: [address], [place] Sodium 137 mEq/L 136-145 mEq/L Final [facility]: [address] [place] [address] Potassium 4.3 mEq/L 3.5-5.1 mEq/L Final [facility]: [address] Chloride 101 mmol/L 98-107 mmol/L Final [facility]: [address] [facility] Total Protein 6.8 g/dL 6.4-8.3 g/dL Final [facility]: [address] [facility] Calcium 9.5 mg/dL 8.4-10.2 mg/dL Final [facility]: [address] [facility] Co2 24.7 mmol/L 22.0-29.0 mmol/L Final [facility]: [address] Anion Gap 11 calc Final [facility]: [address], [place] 09/19/2017 Lipid Panel, Serum Hdl 40 mg/dL 40-60 mg/dL Final [facility]: [address] [facility] High Triglyceride 288 mg/dL 0-149 mg/dL Final [facility]: [address] [place] [address], [place] VLDL Calc. 58 mg/dL Final [facility]: [address] cholesterol/HDL Ratio 5.8 mg/dL Final [facility]: [address] [place] [address], [place] High non-HDL Cholesterol Calc. 190 mg/dL 0-160 mg/dL Final [facility]: [address] [place] [address], [place] High Cholesterol 230 mg/dL 0-199 mg/dL Final [facility]: [address] [place] [address], [place] High LDL Calc. 132 mg/dL 0-130 mg/dL Final [facility]: [address] [place] [address], [place] 09/19/2017 HbA1C (Hemoglobin a1C), Blood High A1C W/eag 9.7 % 1.0- 5.7 % Final [facility]: [address] [place] [address], [place] Average Blood Glucose 232 mg/dL Final [facility]: [address] [place] [address], [place] Rapid Strep Group a, Throat Strep negative [facility] : [address] [place] [address] Past Encounters 12/13/2017 Type II Diabetes Mellitus Uncontrolled; Hyperlipidemia; Benign Essential Hypertension; Acute Sinusitis; Strain of Neck Muscle Fly Jackson MD: [address] [place] [phone], Ph. [phone] 12/06/2017 Acute Sinusitis; Otalgia; Pain in Throat; Body Mass Index 40+ - Severely Obese Fly Jackson MD: [address] [place] [phone], Ph. [phone] 11/29/2017 Type II Diabetes Mellitus Uncontrolled; Mixed Hyperlipidemia Due to Type 2 Diabetes Mellitus Fly Jackson MD: [address] [place] [phone], Ph. 10/16/2017 Type II Diabetes Mellitus Uncontrolled; Mixed Hyperlipidemia Due to Type 2 Diabetes Mellitus; Left Lower Quadrant Pain; Asthma; Body Mass Index 30+ - Obesity Fly Jackson MD: [address] [place] [phone], Ph. 10/09/2017 Major Depressive Disorder; Depressive Disorder; Asthmatic Bronchitis; Type II Diabetes Mellitus Uncontrolled; Hyperlipidemia Tyrone Correia MD: [address] [place] [address], Ph. 09/19/2017 Benign Essential Hypertension; Type 2 Diabetes Mellitus; Gastroesophageal Reflux Disease; Major Depressive Disorder; Upper Respiratory Infection; Body Mass Index 40+ - Severely Obese Fly Jackson MD: [address] [place] [address], Ph. [phone] Social History Smoking Status Former Smoker (1/2 PPD) Vaccine List Vaccine Type influenza, unspecified formulation 07/05/2017 Plan of Care Patient Instructions continue all meds f/u Dr Blake 1 week Reminders Provider Appointments None recorded. Lab None recorded. Referral None recorded. Procedures None recorded. Surgeries None recorded. Imaging None recorded. Vitals 12/13/2017 11:30AM Est Patient Height Weight Blood Pressure 5 ft 2.9 in 134/72 mm[Hg] 12/06/2017 04:30PM Est Patient Height Weight BMI [...]
== END 2017-12-14 06:37 | disposition home or self-care (01) ==
LOC: FSED 05:55
DX: M54.2 Cervicalgia (principal); L04.0 Acute lymphadenitis of face, head and neck; I10 Essential (primary) hypertension; E11.9 Type 2 diabetes mellitus without complications; E78.5 Hyperlipidemia, unspecified
CPT/HCPCS: 99282

== ENCOUNTER 2018-10-31 13:49 | Emergency (ER) | payer OTHER ==
[~2018-10-31] VITALS: Ht 157.5 cm; Wt 104.3 kg
--- OUTSIDE RECORDS SUMMARY | 2018-10-31 13:53 | XMS REPORT ---
Author Organization Unknown Address [address] [place] [address] Phone [phone] Care Team Providers Care Examination Grader Name Role Phone DR. FLY BLAKE 3 [phone] Allergies Code Code System Name Reaction Severity [...] metformin 1,000 mg tablet Active Not available [id number] 3.5 mg-10,000 unit/mL-1 % ear drops,susp Active [...] W/ Contrast [facility] [address] [address] (Work Place) Notes: HEARING IMPLANT (RIGHT) TENDON REPAIR (LEFT ARM) Lab Results Date Name Specimen Result Interpretation Description Value Range Status Address 11/29/2017 HbA1C (Hemoglobin a1C), Blood High Hemoglobin a1C 9.4 % of total HGB <5.7 % of total HGB Final [facility] Laboratory: [address] EAG (mg/dL) 223 (calc) Final [facility] Laboratory: [address] EAG (mmol/L) 12.4 (calc) Final [facility] Laboratory: [address] 11/29/2017 Lipid Panel, Serum Normal Cholesterol, Total 139 mg/dL <200 mg/dL Final [facility] Laboratory: [address] [place] Low HDL Cholesterol 40 mg/dL >50 mg/dL Final [facility] Laboratory: [address] [place] High Triglycerides 189 mg/dL <150 mg/dL Final [facility] Laboratory: [address] [place] Normal LDL-cholesterol 73 mg/dL (calc) Final [facility] Laboratory: [address] [place] Normal Chol/hdlc Ratio 3.5 (calc) <5.0 (calc) Final [facility] Laboratory: [address]055 [address] [place] Normal Non HDL Cholesterol 99 mg/dL (calc) <130 mg/dL (calc) Final [facility] Laboratory: [address] [place] 11/29/2017 CBC W/ Auto Diff Normal White Blood Cell Count 5.3 thousand/uL 3.8-10.8 thousand/uL Final [facility] Laboratory: [address]055 [address] [place] Normal Red Blood Cell Count 4.43 million/uL 3.80-5.10 million/uL Final [facility] Laboratory: [address] [place] Normal Hemoglobin 13.1 g/dL 11.7-15.5 g/dL Final [facility] Laboratory: [address]055 [address] [place] Normal Hematocrit 40.8 % 35.0-45.0 % Final [facility] Laboratory: [address] [place] Normal Mcv 92.1 fL 80.0-100.0 fL Final [facility] Laboratory: [address]055 [address] [place] Normal Mch 29.6 pg 27.0-33.0 pg Final [facility] Laboratory: [address]055 [address] [place] Normal Mchc 32.1 g/dL 32.0-36.0 g/dL Final [facility] Laboratory: [address] [place] Normal Rdw 12.8 % 11.0-15.0 % Final [facility] Laboratory: [address]055 [address] [place] Normal Platelet Count 213 thousand/uL 140-400 thousand/uL Final [facility] Laboratory: [address] [place] Normal Mpv 12.2 fL 7.5-12.5 fL Final [facility] Laboratory: [address], [place] Normal Absolute Neutrophils 3074 cells/uL 4573-8873 cells/uL Final [facility] Laboratory: [address], [place] Absolute Band Neutrophils Preliminary [facility] Laboratory: [address], [place] Absolute Metamyelocytes Preliminary [facility] Laboratory: [address], [place] Absolute Myelocytes Preliminary [facility] Laboratory: [address], [place] Absolute Promyelocytes Preliminary [facility] Laboratory: [address], [place] Normal Absolute Lymphocytes 1855 cells/uL 850-3900 cells/uL Final [facility] Laboratory: [address], [place] Normal Absolute Monocytes 281 cells/uL 200-950 cells/uL Final [facility] Laboratory: [address], [place] Normal Absolute Eosinophils 58 cells/uL 15-500 cells/uL Final [facility] Laboratory: [address], [place] Normal Absolute Basophils 32 cells/uL 0-200 cells/uL Final [facility] Laboratory: [address], [place] Absolute Blasts Preliminary [facility] Laboratory: [address], [place] Absolute Nucleated RBC Preliminary [facility] Laboratory: [address], [place] Normal Neutrophils 58 % Final [facility] Laboratory: [address], [place] Band Neutrophils Preliminary [facility] Laboratory: [address], [place] Metamyelocytes Preliminary [facility] Laboratory: [address], [place] Myelocytes Preliminary [facility] Laboratory: [address], [place] Promyelocytes Preliminary [facility] Laboratory: [address], [place] Normal Lymphocytes 35.0 % Final [facility] Laboratory: [address], [place] Reactive Lymphocytes Preliminary [facility] Laboratory: [address], [place] Normal Monocytes 5.3 % Final [facility] Laboratory: [address], [place] Normal Eosinophils 1.1 % Final [facility] Laboratory: [address], [place] Normal Basophils 0.6 % Final [facility] Laboratory: [address], [place] Blasts Preliminary [facility] Laboratory: [address], [place] Nucleated RBC Preliminary [facility] Laboratory: [address], [place] Comment(s) Preliminary [facility] Laboratory: [address] [place] 11/29/2017 CMP, Serum or Plasma High Glucose 268 mg/dL 65-99 mg/dL Final [facility]: [facility] Urea Nitrogen (BUN) 11 mg/dL 7-25 mg/dL Final [facility] Laboratory: [address] [place] [address] Normal Creatinine 0.58 mg/dL 0.50-1.05 mg/dL Final [facility] Laboratory: [address] Normal eGFR Non-afr. Micronesian 106 mL/min/1.73m2 > or=60 mL/min/1.73m2 Final [facility] Laboratory: [address] Normal eGFR 123 mL/min/1.73m2 > or=60 mL/min/1.73m2 Final [facility] Laboratory: [address] BUN/creatinine Ratio not applicable (calc) 6-22 (calc) Final [facility] Laboratory: [address] Normal Sodium 138 mmol/L 135-146 mmol/L Final [facility] Laboratory: [address] Normal Potassium 3.9 mmol/L 3.5-5.3 mmol/L Final [facility] Laboratory: [address] Normal Chloride 102 mmol/L 98-110 mmol/L Final [facility] Laboratory: [address] Normal Carbon Dioxide 24 mmol/L 20-31 mmol/L Final [facility] Laboratory: [address] Normal Calcium 9.3 mg/dL 8.6-10.4 mg/dL Final [facility] Laboratory: [address] Normal Protein, Total 6.6 g/dL 6.1-8.1 g/dL Final [facility] Laboratory: [address] Normal Albumin 4.2 g/dL 3.6-5.1 g/dL Final [facility] Laboratory: [address] Normal Globulin 2.4 g/dL (calc) 1.9-3.7 g/dL (calc) Final [facility] Laboratory: 9055 [facility] Normal Albumin/globulin Ratio 1.8 (calc) 1.0-2.5 (calc) Final [facility]: 9[address] [facility] Normal Bilirubin, Total 0.3 mg/dL 0.2-1.2 mg/dL Final [facility] Laboratory: 9055 [facility] Normal Alkaline Phosphatase 56 U/L 33-130 U/L Final [facility] Laboratory: [address] [facility] Normal Ast 25 U/L 10-35 U/L Final [facility] Laboratory: [address] [place] [address] High Alt 37 U/L 6-29 U/L Final [facility] Laboratory: [address] [facility] 09/19/2017 CBC W/ Auto Diff Wbc 6.46 x10*3/L 3.98-10.04 x10*3/L Final [facility] Laboratory: 55 [address] Rbc 4.38 10*12/L 3.93-5.22 10*12/L Final [facility] Laboratory: [address] [place] [address] Hemoglobin 13.00 g/dL 11.20-15.70 g/dL Final [facility] Laboratory: [address] [place] [address] Hematocrit 40.8 % 34.1-44.9 % Final [facility] Laboratory: 9[address] [facility] Mcv 93.2 fL 80.0-100.0 fL Final [facility] Laboratory: [address] [place] [address] Mch 29.7 pg 25.6-32.2 pg Final [facility] Laboratory: 9055 [facility] Low Mchc 31.9 g/dL 32.2-35.5 g/dL Final [facility] Laboratory: [address] RDW-SD 43.7 fL 36.4-46.3 fL Final [facility] Laboratory: [address] Platelet Count 243.0 k/uL 182.0-369.0 k/uL Final [facility] Laboratory: [address] High Mpv 12.9 fL 7.5-11.5 fL Final [facility] Laboratory: 9[address] [facility] Neut% 53.6 % 34.0-71.1 % Final [facility] Laboratory: [address] [place] Lymph% 34.7 % 19.3-51.7 % Final [facility] Laboratory: [address] [place] Mon% 10.4 % 4.7-12.5 % Final [facility] Laboratory: [address] [place] Low Eos% 0.5 % 0.7-5.8 % Final [facility] Laboratory: [address], [place] Baso% 0.8 % 0.1-1.2 % Final [facility] Laboratory: [address] [place] Neut# 3.5 x10*3/L 1.6-6.1 x10*3/L Final [facility] Laboratory: [address] [place] Lymph# 2.2 x10*3/L 1.2-3.7 x10*3/L Final [facility] Laboratory: [facility] [facility] Mon# 0.7 x10*3/L 0.2-0.9 x10*3/L Final [facility] Laboratory: [facility] [facility] Low Eos# 0.03 x10*3/L 0.04-0.36 x10*3/L Final [facility] Laboratory: [address] [facility] Baso# 0.05 x10*3/L 0.01-0.08 x10*3/L Final [facility] Laboratory: [address] [facility] 09/19/2017 CMP, Serum or Plasma Alt 49 U/L 0-55 U/L Final [facility] Laboratory: [address] [facility] High Ast 37 U/L 5-34 U/L Final [facility] Laboratory: [address] [facility] Low Bun 7.9 mg/dL 9.8-20.1 mg/dL Final [facility] Laboratory: [address] [facility] Alk Phos 60 unit/L 40-150 unit/L Final [facility] Laboratory: [address] [facility] High Glucose 173 mg/dL 70-99 mg/dL Final [facility] Laboratory: [address] [facility] Albumin 3.7 g/dL 3.5-5.0 g/dL Final [facility] Laboratory: [address], [place] Creatinine 0.69 mg/dL 0.57-1.11 mg/dL Final [facility] Laboratory: [address], [place] eGFR Non- >60 mL/min/1.73m2 >60 mL/min/1.73m2 Final [facility] Laboratory: [address] [facility] Total Bilirubin 0.4 mg/dL 0.2-1.2 mg/dL Final [facility] Laboratory: [address] [place] [address], [place] eGFR - >60 mL/min/1.73m2 >60 mL/min/1.73m2 Final [facility] Laboratory: [address], [place] Sodium 137 mEq/L 136-145 mEq/L Final [facility] Laboratory: [address] [place] [address] Potassium 4.3 mEq/L 3.5-5.1 mEq/L Final [facility] Laboratory: [address] Chloride 101 mmol/L 98-107 mmol/L Final [facility] Laboratory: [address] [facility] Total Protein 6.8 g/dL 6.4-8.3 g/dL Final [facility] Laboratory: [address] [facility] Calcium 9.5 mg/dL 8.4-10.2 mg/dL Final [facility] Laboratory: 9[address] [facility] [facility] Co2 24.7 mmol/L 22.0-29.0 mmol/L Final [facility] Laboratory: [address] Anion Gap 11 calc Final [facility] Laboratory: [address]olan, [place] 09/19/2017 Lipid Panel, Serum Hdl 40 mg/dL 40-60 mg/dL Final [facility] Laboratory: [address] [facility] High Triglyceride 288 mg/dL 0-149 mg/dL Final [facility] Laboratory: [address] [place] [address], [place] VLDL Calc. 58 mg/dL Final [facility] Laboratory: [address] cholesterol/HDL Ratio 5.8 mg/dL Final [facility] Laboratory: [address] [place] [address], [place] High non-HDL Cholesterol Calc. 190 mg/dL 0-160 mg/dL Final [facility] Laboratory: [address] [place] [address], [place] High Cholesterol 230 mg/dL 0-199 mg/dL Final [facility] Laboratory: [address] [place] [address], [place] High LDL Calc. 132 mg/dL 0-130 mg/dL Final [facility] Laboratory: [address] [place] [address], [place] 09/19/2017 HbA1C (Hemoglobin a1C), Blood High A1C W/eag 9.7 % 1.0-5.7 % Final [facility] Laboratory: [address] [place] [address], [place] Average Blood Glucose 232 mg/dL Final [facility] Laboratory: [address] [place] [address], [place] Rapid Strep Group a, Throat Strep negative [facility]: [address] [place] [address] Past Encounters 12/13/2017 Type II Diabetes Mellitus Uncontrolled; Hyperlipidemia; Benign Essential Hypertension; Acute Sinusitis; Strain of Neck Muscle Fly Jackson MD: [address] [place] [phone], Ph. 12/06/2017 Acute Sinusitis; Otalgia; Pain in Throat; Body Mass Index 40+ - Severely Obese Fly Jackson MD: [address] [place] [phone], Ph. 11/29/2017 Type II Diabetes Mellitus Uncontrolled; Mixed Hyperlipidemia Due to Type 2 Diabetes Mellitus Fly Jackson MD: [address] [place] [phone], Ph. 10/16/2017 Type II Diabetes Mellitus Uncontrolled; Mixed Hyperlipidemia Due to Type 2 Diabetes Mellitus; Left Lower Quadrant Pain; Asthma; Body Mass Index 30+ - Obesity Fly Jackson MD: [address] [place] [phone], Ph. 10/09/2017 Major Depressive Disorder; Depressive Disorder; Asthmatic Bronchitis; Type II Diabetes Mellitus Uncontrolled; Hyperlipidemia Tyrone Correia MD: [address] [place] [address], Ph. 09/19/2017 Benign Essential Hypertension; Type 2 Diabetes Mellitus; Gastroesophageal Reflux Disease; Major Depressive Disorder; Upper Respiratory Infection; Body Mass Index 40+ - Severely Obese Fly Jackson MD: [address] [place] [address], Ph. Social History Smoking Status Former Smoker (1/2 [...]
--- OUTSIDE RECORDS SUMMARY | 2018-10-31 13:53 | XMS REPORT | Encounter Summary ---
Author Organization Unknown Address [address] [place] [address] Phone [phone] Care Team Providers Care Clinical Social Worker Name Role Phone Dr. Fly Blake 3 [phone] Prema Torres MD 188 [phone] Reason for Visit sore throat; Bilateral ear pain/problem; Right low back pain Instructions 1. Type II diabetes mellitus uncontrolled type 2 diabetes: care instructions 2. Hyperlipidemia high cholesterol: care instructions 3. Benign essential hypertension 4. Lumbar radiculopathy ketorolac 60 mg/2 mL intramuscular solution cyclobenzaprine 10 mg tablet physical therapy referral 5. Body mass index 40+ - severely obese body mass index: care instructions learning about healthy weight 6. Screening for malignant neoplasm of breast MAMMO, screening, digital, bilateral - PLEASE FAX RESULTS TO [phone]. 7. Thrombosis of internal jugular vein 8. Low back pain urinalysis, dipstick 9. Pain in throat rapid strep group A, throat 10. Upper respiratory infection Zithromax Z-Herrera 250 mg tablet Discussion Note: None recorded. Plan of Care Reminders Provider Appointments Est Patient 01/16/2019 9:00AM Fly Jackson MD Lab Rapid Strep Group a, Throat 10/19/2018 [place] [facility] [place] Urinalysis, Dipstick 10/19/2018 [place] ([facility]) [place] Referral Physical Therapy Referral 10/19/2018 [facility] Physical Therapy Procedures None recorded. Surgeries None recorded. Imaging MAMMO, Screening, Digital, Bilateral 10/19/2018 Patients [facility] (Imaging Scheduling) Medications Name Start Date atorvastatin 10 mg tablet TAKE ONE TABLET BY MOUTH DAILY DIRECTED BD Ultra-Fine Lorna Pen Needle 32 gauge x 5/32" QD citalopram 40 mg tablet TAKE ONE TABLET BY MOUTH DAILY cyclobenzaprine 10 mg tablet Take 1 tablet as needed by oral route at bedtime for 14 days. Easy Comfort Lancets 30 gauge QD fluticasone 50 mcg/actuation nasal spray,suspension [place] 1 spray twice a day by intranasal route as directed for 30 days. gabapentin 300 mg capsule 1 QD PRN ketorolac 60 mg/2 mL intramuscular solution Inject 60 mg as needed by intramuscular route. lisinopril 10 mg tablet TAKE ONE TABLET BY MOUTH DAILY metformin 1,000 mg tablet Take 1 tablet twice a day by oral route as directed for 90 days. Novolog Flexpen U-100 Insulin aspart 100 unit/mL subcutaneous Inject 50 units twice a day by sub-q route as directed for 30 days. Steglatro 5 mg tablet Take 1 tablet every day by oral route as directed for 30 days. sucralfate 1 gram tablet Take 1 tablet every day by oral route. Symbicort 160 mcg-4.5 mcg/actuation HFA aerosol inhaler Inhale 2 puffs twice a day by inhalation route as needed. Tradjenta 5 mg tablet Take 1 tablet every day by oral route as directed for 90 days. True Metrix Glucose Test Strip QD Zithromax Z-Herrera 250 mg tablet TAKE 2 TABLETS (500 MG) BY ORAL ROUTE ONCE DAILY FOR 1 DAY THEN 1 TABLET (250 MG) BY ORAL ROUTE ONCE DAILY FOR 4 DAYS Medications Administered Name Date ketorolac 60 mg/2 mL intramuscular solution Inject 60 mg as needed by intramuscular route. [id number]:00 Vitals Height Weight BMI Blood Pressure 5 ft 2.9 in 238 lbs 42.3 kg/m2 120/70 mm[Hg] Lab Results None recorded. Allergies Code Code System Name Reaction Severity Status Onset 7052 RxNorm Morphine Active Tuna Oil Active NKDA Problems Name Status Onset Date Source Type 2 Diabetes Mellitus Active 09/19/2017 Major Depressive Disorder Active 09/19/2017 Benign Essential Hypertension Active 09/19/2017 Gastroesophageal Reflux Disease Active 09/19/2017 Asthma Active 10/16/2017 Procedures Date Name Performed by 10/05/2017 Colonoscopy with Biopsy Information not available 09/04/2016 Other Information not available 09/04/2015 Other Information not available 09/04/2015 Colonoscopy Information not available Neck Spine Disk Surgery Information not available Back Surgery Information not available Appendectomy Information not available Cholecystectomy (Gall Bladder Removal) Information not available Hernia Repair Information not available Partial Hysterectomy Information not available Carpal Tunnel Surgery Information not available Eye Surgery Information not available 10/19/2018 MAMMO, Screening, Digital, Bilateral Patients [facility] (Imaging Scheduling) [address] [place] [address] (Work Place) Vaccine List Vaccine Type influenza, injectable, quadrivalent, preservative free 06/27/20180.5 mL influenza, unspecified formulation 07/05/2017 pneumococcal polysaccharide PPV23 08/16/20180.5 mL Tdap 08/16/20180.5 mL Social History Smoking Status Former Smoker (1/2 PPD) Past Encounters 10/19/2018 Type II Diabetes Mellitus Uncontrolled; Hyperlipidemia; Benign Essential Hypertension; Lumbar Radiculopathy; Body Mass Index 40+ - Severely Obese; Screening for Malignant Neoplasm of Breast; Thrombosis of Internal Jugular Vein; Low Back Pain; Pain in Throat; Upper Respiratory Infection Fly Jackson MD: [address] [place] [address], Ph. History of Present Illness Note:F/u on chronic conditions. Needs refill in meds. Compliant with meds. Non compliant with diet or exercise. BS at home 130s fasting. BPs at home 100s/60s. No side effects with meds.<div>Nasal congestion, sinus pressure, sore throat and R ear pain since 4 days ago. Denies fever, sob, wheezing.</div><div>Pain in the R side of the lumbar area radiated to the R leg. Constant. Intensity: 6/10. Sharp type. Concomitantly, numbness, tingling and weakness in the R leg. </div> Review of Systems:ROS as noted in the HPI Review of Systems None recorded. Physical Exam General Adult Exam (male) Reported By: Patient Constitutional: General Appearance: healthy-appearing, morbidly obese. Level of Distress: NAD. Ambulation: ambulating normally Psychiatric: Insight: good judgement. Mental Status: active and alert, normal mood, normal affect. Orientation: to time, to place, to person. Memory: recent memory normal, remote memory normal Eyes: Lids and Conjunctivae: non-injected, no discharge ENMT: Ears: TMs clear. Nose: nares non-patent, sinus tenderness, nasal discharge, post nasal drip. Lips, Teeth, and Gums: no mouth or lip ulcers. Oropharynx: moist mucous membranes, no exudates, tonsils not enlarged, erythema Neck: Neck: supple, trachea midline. Lymph Nodes: no cervical LAD Lungs: Respiratory effort: no dyspnea. Auscultation: breath sounds normal Cardiovascular: Heart Auscultation: RRR, normal S1, normal S2, no murmurs Musculoskeletal:: Motor Strength and Tone: normal, normal tone. Joints, Bones, and Muscles: normal movement of all extremities. Extremities: no edema Neurologic: Gait and Station: normal gait. Sensation: grossly intact. Reflexes: DTRs 2+ bilaterally throughout Skin: Inspection and palpation: no rash, no lesions Back: Thoracolumbar Appearance: ; Tenderness with palpation in the R side of the lumbar area with muscle spasms. Positive straight leg raising test in the R side
--- OUTSIDE RECORDS SUMMARY | 2018-10-31 13:53 | XMS REPORT | Clinical Summary ---
Author Author GARCIA [facility] Address Unknown Phone Unavailable Care Team Providers Care Folder Seamer Automatic Name Role Phone Jeanette Stroud PCP Unavailable Allergies Comments Active Allergy Reactions Severity Noted Date Can take Morphine if premedicated with Benadryl per patient Opioids - Morphine Itching Medium 12/21/2016 Analogues Tuna fish- vomiting Tuna Oil Nausea And Medium 08/15/2018 Vomiting Medications End Date Status Medication Sig Dispensed Refills Start Date Active linagliptin (TRADJENTA) 5 Take 5 mg by 0 mg Tab mouth daily. Active hydrOXYzine (ATARAX) 25 Take 25 mg by 0 MG tablet mouth daily. Active fluticasone (FLONASE) 50 1 spray by 0 mcg/actuation nasal spray Nasal route daily. Active citalopram (CELEXA) 40 MG Take 40 mg by 0 tablet mouth daily. Active lisinopril Take 10 mg by 0 (PRINIVIL,ZESTRIL) 10 MG mouth daily. tablet Active metFORMIN (GLUCOPHAGE) Take 1,000 mg 0 1000 MG tablet by mouth 2 (two) times daily with breakfast and dinner. Active glipiZIDE (GLUCOTROL) 5 Take 5 mg by 0 MG tablet mouth 2 (two) times daily before meals. Active insulin aspart U-100 Inject 50 0 (NOVOLOG) 100 unit/mL Units InPn subcutaneousl y 2 (two) times daily. Active gabapentin (NEURONTIN) Take 300 mg 0 300 MG capsule by mouth 2 (two) times daily. Active sucralfate (CARAFATE) 1 Take 1 g by 0 gram tablet mouth 4 (four) times daily. Active budesonide-formoterol Inhale 2 0 (SYMBICORT) 160-4.5 puffs by mcg/actuation inhaler mouth via inhaler 2 (two) times daily. Active rivaroxaban (XARELTO) 20 Take by mouth 0 mg Tab tablet daily with dinner. 09/07/2018 acetaminophen-codeine Take 1 tablet 30 tablet 0 (TYLENOL-CODEINE #3) by mouth 8 300-30 mg per tablet every 4 (four) hours as needed for up to 10 days. 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 Never 08/15/2018 How many drinks containing alcohol do you have on Not asked a typical day when you are drinking? How often do you have six or more drinks on one Not asked occasion? Sex Assigned at Date Recorded Not on file Industry Job Start Date Occupation Not on file Not on file Not on file Travel End Travel History Travel Start No recent travel history available. Last Filed Vital Signs Time Taken Vital Sign Reading 08/29/2018 7:47 AM INVESTIGATOR VICE Blood Pressure 108/56 08/29/2018 10:00 AM INVESTIGATOR VICE Pulse 74 08/29/2018 7:47 AM INVESTIGATOR VICE Temperature 36.7 C (98.1 F) 08/29/2018 10:00 AM INVESTIGATOR VICE Respiratory Rate 18 08/29/2018 10:00 AM INVESTIGATOR VICE Oxygen Saturation 99% - Inhaled Oxygen - Concentration 08/27/2018 7:38 AM INVESTIGATOR VICE Weight 106.9 kg (235 lb 10.8 oz) 08/27/2018 7:38 AM INVESTIGATOR VICE Height 157.5 cm (5' 2") 08/27/2018 7:38 AM INVESTIGATOR VICE Body Mass Index 43.1 Plan of Treatment Not on file Procedures Comments Procedure Name Priority Date/Time Associated Diagnosis INTRAOPERATIVE PATH 09/20/2018 REPORT - SCAN 11:33 AM INVESTIGATOR VICE RHYTHM STRIP - SCAN 09/14/2018 4:00 PM INVESTIGATOR VICE POCT-GLUCOSE METER Routine 08/29/2018 7:31 AM INVESTIGATOR VICE POCT-GLUCOSE METER Routine 08/29/2018 2:18 AM INVESTIGATOR VICE POCT-GLUCOSE METER Routine 08/28/2018 9:30 PM INVESTIGATOR VICE POCT-GLUCOSE METER Routine 08/28/2018 6:09 PM INVESTIGATOR VICE POCT-GLUCOSE METER Routine 08/28/2018 7:46 AM INVESTIGATOR VICE CREATININE Routine 08/28/2018 6:24 AM INVESTIGATOR VICE POCT-GLUCOSE METER Routine 08/27/2018 10:01 PM INVESTIGATOR VICE POCT-GLUCOSE METER Routine 08/27/2018 4:15 PM INVESTIGATOR VICE POCT-GLUCOSE METER Routine 08/27/2018 11:22 AM INVESTIGATOR VICE TISSUE EXAM AP Routine 08/27/2018 10:29 AM INVESTIGATOR VICE THYROIDECTOMY,LOBECTOMY 08/27/2018 Thyroid nodule 8:30 AM INVESTIGATOR VICE Case Notes 23 HOUR OBS POCT-GLUCOSE METER Routine 08/27/2018 7:[address] SOFT TISSUE NECK WITH Routine 08/24/2018 IV CONTRAST 9:11 AM INVESTIGATOR VICE ECG 12-LEAD Routine 08/15/2018 6:03 PM INVESTIGATOR VICE Procedure Note - Interface, External Ris In - 08/15/2018 6:12 PM INVESTIGATOR VICE Ventricula r Rate 74 BPM Atrial Rate 74 BPM P-R Interval 124 ms QRS Duration 78 ms Q-T Interval 416 ms QTC Calculatio n(Bazett) 461 ms P [place] -6 degrees R [place] 1 degrees T [place] 59 degrees Normal sinus rhythm Cannot rule out Inferior infarct , age undetermin ed Abnormal ECG When compared with ECG of 9 12:54, Minimal criteria for Inferior infarct are now Present ECG 12-LEAD Routine 08/15/2018 6:03 PM INVESTIGATOR VICE GLUCOSE Routine 08/15/2018 6:02 PM INVESTIGATOR VICE ELECTROLYTE PANEL Routine 08/15/2018 6:02 PM INVESTIGATOR VICE BUN AND CREATININE Routine 08/15/2018 6:02 PM INVESTIGATOR VICE HEMOGLOBIN Routine 08/15/2018 6:02 PM INVESTIGATOR VICE after 10/30/2017 Results * INTRAOPERATIVE PATH REPORT - SCAN (09/20/2018 11:33 AM INVESTIGATOR VICE) Narrative Performed At * RHYTHM STRIP - SCAN (09/14/2018 4:00 PM INVESTIGATOR VICE) Narrative Performed At * POC-Glucose meter (08/29/2018 7:31 AM INVESTIGATOR VICE) Only the most recent of 9 results within the time period is included. POC-Glucose Meter 186 (H)Comment: TESTED AT 70 - 110 mg/dL [facility] [address] [place] [id number] Specimen Blood Performing Organization Address City/[facility] Phone Number [address] [phone] [place] * Creatinine (08/28/2018 6:24 AM INVESTIGATOR VICE) Creatinine 0.85 0.57 - 1.25 mg/dL [facility] EGFR Comment: INSUFFICIENT CLINICAL mL/min/1.[address] [facility] DATA TO CALCULATE ESTIMATED [facility] GFR. Specimen Blood - Arm, Right Performing Organization Address City/[facility]/Zipcode Phone Number [address] [address] [place] * Tissue Exam (08/27/2018 10:29 AM INVESTIGATOR VICE) Case Report Surgical Pathology [facility] Report [facility] Case: [id number] Authorizing Provider:Walter Stewart MD Collected: 08/27/2018 1029 Ordering Location: [facility] PERIOPERATIVE Received: 08/27/2018 1034 SERVICES Pathologist: Melissa Das MD Specimen:Thyroid, Right, RIGHT THYROID LOBE DIAGNOSIS THYROID, RIGHT, [facility] HEMITHYROIDECTOMY: [facility] - NODULAR HYPERPLASIA WITH FOCAL CALCIFICATION - ONE BENIGN LYMPH NODE Signing Pathologist Direct Phone Line: [phone] CPT Code(s) 25167, 45074, 35386 X 3 [facility] CLINICAL HISTORY Right thyroid nodule [facility] GROSS DESCRIPTION The case was received in one [facility] part labeled with the [facility] patient's name, Lois Eldridge, date of , 1965, and accession number, [id number], which corresponds with accompanying paperwork. Received without fixative is a 19.1 gm, 6.5 cm x 3.0 cm x 0.8 cm, hill-red to red-brown thyroid lobe labeled "right thyroid lobe". The anterior surface of the lobe is inked in green, and the posterior surface is inked black. Serial sectioning reveals a red-brown lobulated surface with a 2.0 x 1.5 x 1.1 cm, hill-pink to hill-white, firm nodule. The nodule appears to extend grossly from the superior pole down to within 1.0 cm of the inferior pole. The specimen is entirely submitted in cassettes A1 through A12. SC/ew INTRAOPERATIVE ATP1-4: RIGHT THYROID LOBE, [facility] CONSULTATION RIGHT THYROID NODULES: [facility] - FOLLICULAR LESION, DEFER TO PERMANENT SECTION Reported by Dr. Das to Dr. Stewart at 10:56 a.m. on 08/27/2018 MICROSCOPIC DESCRIPTION Performed. [facility] Specimen Tissue - Thyroid, Right Performing Organization Address City/State/Zipcode Phone Number [facility] [address] [place] [address] [address] * CT neck soft tissue with IV contrast (08/24/2018 9:11 AM INVESTIGATOR VICE) Narrative Performed At FINAL REPORT [employer] CT, SOFT TISSUE NECK, CONTRAST INDICATION:JUGULAR VEIN OCCLUSION RIGHT TECHNIQUE: Postcontrast CT images of the cervical soft tissues. Multiplanar, orthogonal reformatted images were generated. DOSE REDUCTION: Dose modulation, iterative reconstruction, and/or weight-based adjustment of the mA/kV was utilized to reduce the radiation dose to as low as reasonably achievable. COMPARISON: None FINDINGS: Pharyngeal mucosa: Unremarkable nasopharynx, oropharynx and hypopharynx. Oral cavity: Normal including tongue and floor of mouth. Larynx: Unremarkable supraglottic, glottic and subglottic larynx. Lymph nodes: No adenopathy. Salivary glands: Normal parotid, submandibular and sublingual glands. Thyroid: Normal. Thoracic inlet: No apical opacity. Vascular structures: Evaluation of the structures limited by suboptimal bolus timing. There is no visible opacification of the right jugular vein beginning at approximately the level of the hyoid bone extending to skull base. Visible portions of the right sigmoid sinus are atretic but faintly opacified. Orbits, paranasal sinuses and skull base: No acute orbital abnormality. Visible sinuses are clear. Unremarkable skull base. Additional findings: Straightening of normal cervical lordosis. Anterior fusion and interbody spacer placement noted at C5-C6. IMPRESSION: Suboptimal opacification of the venous structures. No contrast opacification is identified in the right internal jugular vein starting from the level of the skull base to approximately the level of the hyoid bone. Signed: JR Bruner Robert MD Report Verified Date/Time:08/24/2018 09:05:25 Reading Location: [address] Neuro Reading Room Procedure Note Interface, External Ris In - 08/24/2018 9:13 AM INVESTIGATOR VICE FINAL REPORT CT, SOFT TISSUE NECK, CONTRAST INDICATION: JUGULAR VEIN OCCLUSION RIGHT TECHNIQUE: Postcontrast CT images of the cervical soft tissues. Multiplanar, orthogonal reformatted images were generated. DOSE REDUCTION: Dose modulation, iterative reconstruction, and/or weight-based adjustment of the mA/kV was utilized to reduce the radiation dose to as low as reasonably achievable. COMPARISON: None FINDINGS: Pharyngeal mucosa: Unremarkable nasopharynx, oropharynx and hypopharynx. Oral cavity: Normal including tongue and floor of mouth. Larynx: Unremarkable supraglottic, glottic and subglottic larynx. Lymph nodes: No adenopathy. Salivary glands: Normal parotid, submandibular and sublingual glands. Thyroid: Normal. Thoracic inlet: No apical opacity. Vascular structures: Evaluation of the structures limited by suboptimal bolus timing. There is no visible opacification of the right jugular vein beginning at approximately the level of the hyoid bone extending to skull base. Visible portions of the right sigmoid sinus are atretic but faintly opacified. Orbits, paranasal sinuses and skull base: No acute orbital abnormality. Visible sinuses are clear. Unremarkable skull base. Additional findings: Straightening of normal cervical lordosis. Anterior fusion and interbody spacer placement noted at C5-C6. IMPRESSION: Suboptimal opacification of the venous structures. No contrast opacification is identified in the right internal jugular vein starting from the level of the skull base to approximately the level of the hyoid bone. Signed: JR Bruner Robert MD Report Verified Date/Time: 08/24/2018 09:05:25 Reading Location: [address] Neuro Reading Room Performing Organization Address City/State/Zipcode Phone Number [facility] * ECG 12 lead (08/15/2018 6:03 PM INVESTIGATOR VICE) Narrative Performed At Ventricular Rate 74 BPM [facility] Atrial Rate 74 BPM P-R Interval 124 ms QRS Duration 78 ms Q-T Interval 416 ms QTC Calculation(Bazett) 461 ms P [place] -6 degrees R [place] 1 degrees T [place] 59 degrees Normal sinus rhythm Cannot rule out Inferior infarct , age undetermined Abnormal ECG When compared with ECG of 30-AUG-2009 12:54, Minimal criteria for Inferior infarct are now Present Confirmed by MD ALEXIS JOSEPH P ([id number]) on 08/16/2018 6:13:51 AM Procedure Note Interface, External Ris In - 08/16/2018 6:14 AM INVESTIGATOR VICE Ventricular Rate 74 BPM Atrial Rate 74 BPM P-R Interval 124 ms QRS Duration 78 ms Q-T Interval 416 ms QTC Calculation(Bazett) 461 ms P [place] -6 degrees R [place] 1 degrees T [place] 59 degrees Normal sinus rhythm Cannot rule out Inferior infarct , age undetermined Abnormal ECG When compared with ECG of 30-AUG-2009 12:54, Minimal criteria for Inferior infarct are now Present Confirmed by MD ALEXIS JOSEPH P ([id number]) on 08/16/2018 6:13:51 AM Performing Organization Address City/State/Zipcode Phone Number [facility] * BUN and Creatinine (08/15/2018 6:02 PM INVESTIGATOR VICE) BUN 12 7 - 21 mg/dL [facility] Creatinine 0.83 0.57 - 1.25 mg/dL [facility] EGFR Comment: INSUFFICIENT CLINICAL mL/min/1.[address] [facility] DATA TO CALCULATE ESTIMATED [facility] GFR. Specimen Blood Performing Organization Address City/[facility]/Zipcode Phone Number [address] * Hemoglobin (08/15/2018 6:02 PM INVESTIGATOR VICE) Hemoglobin 13.3 11.2 - 15.7 GM/DL [facility] Specimen Blood Performing Organization Address City/[facility] Phone Number [address] * Glucose (08/15/2018 6:02 PM INVESTIGATOR VICE) Glucose 159 (H) 70 - 105 mg/dL [facility] Specimen Blood Performing Organization Address [facility] Phone Number [address] * Electrolytes (08/15/2018 6:02 PM INVESTIGATOR VICE) Sodium 140 136 - 145 meq/L [facility] Potassium 4.9 3.5 - 5.1 meq/L [facility] Chloride 103 98 - 107 meq/L [facility] CO2 30 (H) 22 - 29 meq/L [facility] Specimen Blood Performing Organization Address City/[facility]/Zipcode Phone Number [address] [address] [phone] after 10/30/2017 Insurance Payer Benefit Subscriber ID Type Phone Address Plan / Group HERMANN [employer]ARY xxxxxxxxxxx [employer] Advance Directives For more information, please contact: [address] [address] Date Inactivated Comments Code Status Date Activated Full Code 08/27/2018 1:44 PM This code status was determined by: Patient
[2018-10-31] MEDS ORDERED: SODIUM CHLORIDE 0.9% 1000ML 1,000 ML IV STA (14:21)
[2018-10-31] MEDS ORDERED: MORPHINE SULFATE INJ 4 MG/ML INJ 1ML IV STA (14:21)
[2018-10-31] MEDS ORDERED: KETOROLAC TROMETHAMINE 30 MG/ML VIAL IV ONE (14:45)
[2018-10-31] MEDS ORDERED: ONDANSETRON HCL INJ 2MG/ML 2ML 2 MG/ML VIAL IV ONE (14:45)
[2018-10-31 15:47] LABS: BASOPHILS # (AUTO) 0.1 (0.0-0.1); BASOPHILS % 0.7 % (0.0-1.0); EOSINOPHILS % 0.5 % (0.0-6.0); HEMATOCRIT 39.7 % (34.2-44.1); HEMOGLOBIN 12.8 g/dL (12.0-16.0); LYMPHOCYTES # (AUTO) 2.8 (1.0-3.2); LYMPHOCYTES % 38.1 % (18.0-39.1); MEAN CORPUSCULAR HEMOGLOBIN 29.8 pg (28-32); MEAN CORPUSCULAR HGB CONC 32.2 g/dL (31-35); MEAN CORPUSCULAR VOLUME 92.3 fL (81-99); MONOCYTES # (AUTO) 0.6 (0.2-0.8); MONOCYTES % 7.8 % (4.4-11.3); NEUTROPHILS # (AUTO) 3.8 (2.1-6.9); NEUTROPHILS % 52.5 % (38.7-80.0); PLATELET COUNT 222 x10e3/uL (140-360); RED CELL DISTRIBUTION WIDTH 12.9 % (11.7-14.4)
[2018-10-31 15:52] LABS: BILIRUBIN,URINE NEGATIVE (NEGATIVE); CLARITY,URINE CLEAR (CLEAR); COLOR,URINE YELLOW (YELLOW); KETONES,URINE NEGATIVE (NEGATIVE); LEUKOCYTE ESTERASE ,URINE NEGATIVE (NEGATIVE); NITRITE,URINE NEGATIVE (NEGATIVE); PROTEIN,URINE DIPSTICK NEGATIVE (NEGATIVE); URINE UROBILINOGEN 0.2 mg/dL (0.2 - 1)
[2018-10-31 16:04] LABS: BACTERIA,URINE FEW /HPF; EPITHELIAL CELLS,URINE FEW /LPF
[2018-10-31 16:07] LABS: ALANINE AMINOTRANSFERASE 49 IU/L (0-55); ALBUMIN 4.1 g/dL (3.5-5.0); ALBUMIN/GLOBULIN RATIO 1.5 (0.8-2.0); ALKALINE PHOSPHATASE 58 IU/L (40-150); ANION GAP 16.3 mmol/L (8-16); BLOOD UREA NITROGEN 13 mg/dL (7-26); BUN/CREATININE RATIO 17 (6-25); CALCIUM 9.8 mg/dL (8.4-10.2); CARBON DIOXIDE 23 mmol/L (22-29); CHLORIDE 101 mmol/L (98-107); CREATININE, SERUM 0.78 mg/dL (0.57-1.11); EST GLOMERULAR FILTRATION RATE > 60 ML/MIN (60-); GLUCOSE 159 mg/dL (74-118); POTASSIUM 4.3 mmol/L (3.5-5.1); SODIUM 136 mmol/L (136-145)
--- NOTE | 2018-10-31 19:57 | Diagnostic Imaging Report ---
EXAM: CT Abdomen and Pelvis WITHOUT contrast INDICATION: ^STONE PROTOCOL ^[id number] ^1445 ^Y COMPARISON: None. TECHNIQUE: Abdomen and pelvis were scanned utilizing a multidetector helical scanner from the lung base to the pubic symphysis without administration of IV contrast. Absence of intravenous contrast decreases sensitivity for detection of focal lesions and vascular pathology. Coronal and sagittal reformations were obtained. Routine protocol was performed. IV CONTRAST: None. ORAL CONTRAST: Water RADIATION DOSE: Total DLP: 890.6 mGy*cm Estimated effective dose: (DLP x 0.015 x size factor) mSv COMPLICATIONS: None FINDINGS: LINES and TUBES: None. LOWER THORAX: Unremarkable HEPATOBILIARY: No focal hepatic lesions. No biliary ductal dilation. GALLBLADDER: Cholecystectomy. SPLEEN: No splenomegaly. PANCREAS: No focal masses or ductal dilatation. ADRENALS: No adrenal nodules KIDNEYS/URETERS: No hydronephrosis. No cystic or solid mass lesions. No stones. GI TRACT: Postsurgical changes inferiorly also for small bowel in the right upper abdomen. No abnormal distention, wall thickening, or evidence of bowel obstruction. Scattered diverticulosis throughout the colon without diverticulitis. Appendix is normal. PELVIC ORGANS/BLADDER: Unremarkable. LYMPH NODES: No lymphadenopathy. VESSELS: Unremarkable. PERITONEUM / RETROPERITONEUM: No free air or fluid. BONES: Mild multilevel degenerative changes of the lumbar spine. SOFT TISSUES: Unremarkable. IMPRESSION: 1. No calcified nephroureterolithiasis. 2. Cholecystectomy. 3. Colonic diverticulosis. Signed by: Dr. Theresa Shaffer M.D. on 10/31/2018 7:53 PM
[2018-10-31] MEDS ORDERED: ULTRAM50 MG PO (20:10)
[2018-10-31] MEDS ORDERED: HYDROCODONE/APAP 7.5MG-325MG 1 EA TAB PO ONE (20:15)
[2018-10-31 21:34] VITALS: BP 129/73
== END 2018-10-31 21:47 | disposition home or self-care (01) ==
LOC: ER 13:49
DX: R30.0 Dysuria (principal); R11.0 Nausea; M54.5 Low back pain; R10.31 Right lower quadrant pain; I10 Essential (primary) hypertension; E11.9 Type 2 diabetes mellitus without complications; K21.9 Gastro-esophageal reflux disease without esophagitis; E03.9 Hypothyroidism, unspecified; F41.9 Anxiety disorder, unspecified
CPT/HCPCS: 36415; 74176; 80053; 81001; 85025; 99284; J1885; J2405; J7030

== ENCOUNTER → 2018-11-09 | Outpatient (CLI) | payer OTHER | LOC: MAMMO 08:14 | PROVIDERS: ATTEND Family Medicine | DX: Z12.31 Encounter for screening mammogram for malignant neoplasm of breast (principal) | CPT/HCPCS: 77067 ==

== ENCOUNTER 2024-12-07 18:16 | Observation (INO) | payer MEDICARE, OTHER ==
[~2024-12-07] VITALS: Ht 157.5 cm; Wt 116.6 kg
[2024-12-07 18:53] LABS: BASOPHILS % 0.6 % (0.0-1.0); EOSINOPHILS # (AUTO) 0.1 (0.0-0.4); EOSINOPHILS % 0.7 % (0.0-6.0); HEMATOCRIT 39.3 % (34.2-44.1); HEMOGLOBIN 13.2 g/dL (12.0-16.0); LYMPHOCYTES # (AUTO) 2.8 (1.0-3.2); LYMPHOCYTES % 39.9 % (18.0-39.1); MEAN CORPUSCULAR HEMOGLOBIN 31.8 pg (28-32); MEAN CORPUSCULAR HGB CONC 33.6 g/dL (31-35); MEAN CORPUSCULAR VOLUME 94.7 fL (81-99); MONOCYTES # (AUTO) 0.6 (0.2-0.8); MONOCYTES % 8.8 % (4.4-11.3); NEUTROPHILS # (AUTO) 3.5 (2.1-6.9); NEUTROPHILS % 49.6 % (38.7-80.0); PLATELET COUNT 243 x10e3/uL (140-360); RED BLOOD COUNT 4.15 x10e6/uL (3.6-5.1); WHITE BLOOD COUNT 7.05 x10e3/uL (4.8-10.8)
[2024-12-07 19:07] LABS: ALBUMIN/GLOBULIN RATIO 1.3 (0.8-2.0); ANION GAP 16.7 mmol/L (8-16); BILIRUBIN,TOTAL 0.6 mg/dL (0.2-1.2); CALCIUM 9.7 mg/dL (8.4-10.2); CREATININE, SERUM 0.93 mg/dL (0.57-1.11); POTASSIUM 3.7 mmol/L (3.5-5.1); TOTAL PROTEIN 7.1 g/dL (6.5-8.1)
[2024-12-07] MEDS: ONDANSETRON HCL INJ 2MG/ML 2ML 2 MG/ML VIAL IV STA (19:08)
[2024-12-07 19:45] LABS: BILIRUBIN,URINE NEGATIVE (NEGATIVE); CLARITY,URINE CLEAR (CLEAR); COLOR,URINE YELLOW (YELLOW); GLUCOSE, URINE NEGATIVE (NEGATIVE); KETONES,URINE NEGATIVE (NEGATIVE); LEUKOCYTE ESTERASE ,URINE NEGATIVE (NEGATIVE); NITRITE,URINE NEGATIVE (NEGATIVE); PH,URINE 5.5 (5 - 7); PROTEIN,URINE DIPSTICK NEGATIVE (NEGATIVE); URINE UROBILINOGEN 0.2 mg/dL (0.2 - 1)
[2024-12-07 20:01] LABS: BACTERIA,URINE MODERATE /HPF; EPITHELIAL CELLS,URINE FEW /LPF; RBC,URINE 0-5 /HPF (0-5); WBC,URINE (MAN) 0-5 /HPF (0-5)
[2024-12-07] MEDS ORDERED: DIPHENHYDRAMINE HCL INJ 50 MG/ML VIAL ONE (20:01)
[2024-12-07] MEDS: DIPHENHYDRAMINE HCL INJ 50 MG/ML VIAL IV ONE (20:08)
[2024-12-07] MEDS: SODIUM CHLORIDE 0.9% 1000ML 1,000 ML IV ONE (21:04)
[2024-12-07] MEDS ORDERED: DEXTROSE 50% SYRINGE 50 ML IV PRN (21:15)
[2024-12-07 21:30] VITALS: PULSE 72; RESP 18; O2SAT 99
[2024-12-07] MEDS: INSULIN REGULAR, HUMAN 100 UNIT/1 ML SQ SCH (21:34)
[2024-12-07] MEDS ORDERED: IOPAMIDOL 370 MG/ML 100 ML INFUS..BTL INJ ONE (21:45)
[2024-12-07] MEDS: ACETAMINOPHEN 325 MG TAB PO PRN (23:47)
[2024-12-07 23:48] VITALS: PULSE 70; RESP 14; TEMP 98.2
[2024-12-08 00:51] VITALS: BP 148/67; PULSE 67; RESP 18; TEMP 97.9; O2SAT 100
[2024-12-08 01:10] VITALS: BP 148/67; PULSE 67; RESP 18; TEMP 97.9; O2SAT 100
[2024-12-08] MEDS ORDERED: MONTELUKAST SOD10 MG PO (01:16)
[2024-12-08] MEDS ORDERED: ATORVASTATIN CA20 MG PO (01:16)
[2024-12-08] MEDS ORDERED: BUSPIRONE HCL10 MG PO (01:16)
[2024-12-08] MEDS ORDERED: ABILIFY2 MG PO (01:16)
[2024-12-08] MEDS ORDERED: LEVOTHYROXINE50 MCG PO (01:16)
[2024-12-08] MEDS ORDERED: BASAGLAR K100 UNIT/1 (01:29)
[2024-12-08] MEDS ORDERED: FLONASE ALLERG9.9 ML INH (01:29)
[2024-12-08] MEDS ORDERED: OZEMPIC2 MG/0.75 (01:29)
[2024-12-08] MEDS ORDERED: NOVOLOG100 UNIT/1 SC (01:29)
[2024-12-08] MEDS ORDERED: VITAMIN D250 MCG (01:29)
[2024-12-08] MEDS ORDERED: ARICEPT10 MG PO (01:29)
[2024-12-08] MEDS ORDERED: LISINOPRIL-HCT1 EAC2 PO (01:33)
[2024-12-08] MEDS: ONDANSETRON HCL INJ 2MG/ML 2ML 2 MG/ML VIAL IV PRN (02:24)
[2024-12-08 03:19] LABS: TROPONIN I 0.015 ng/mL (0-0.300)
[2024-12-08 04:05] VITALS: BP 120/59; PULSE 67; RESP 16; TEMP 98.3; O2SAT 99
[2024-12-08 06:18] VITALS: PULSE 78; RESP 20; O2SAT 97
[2024-12-08 07:15] LABS: BASOPHILS % 0.6 % (0.0-1.0); EOSINOPHILS # (AUTO) 0.1 (0.0-0.4); EOSINOPHILS % 1.1 % (0.0-6.0); HEMATOCRIT 36.2 % (34.2-44.1); HEMOGLOBIN 11.9 g/dL (12.0-16.0); LYMPHOCYTES # (AUTO) 2.7 (1.0-3.2); LYMPHOCYTES % 43.2 % (18.0-39.1); MEAN CORPUSCULAR HEMOGLOBIN 31.2 pg (28-32); MEAN CORPUSCULAR HGB CONC 32.9 g/dL (31-35); MONOCYTES # (AUTO) 0.6 (0.2-0.8); MONOCYTES % 9.4 % (4.4-11.3); NEUTROPHILS # (AUTO) 2.8 (2.1-6.9); NEUTROPHILS % 45.2 % (38.7-80.0); PLATELET COUNT 205 x10e3/uL (140-360); RED BLOOD COUNT 3.81 x10e6/uL (3.6-5.1); WHITE BLOOD COUNT 6.28 x10e3/uL (4.8-10.8)
[2024-12-08] MEDS ORDERED: INSULIN REGULAR, HUMAN 100 UNIT/1 ML SQ SCH (07:30)
[2024-12-08 07:39] VITALS: BP 113/59; PULSE 74; RESP 20; TEMP 98.1; O2SAT 100
[2024-12-08 07:55] LABS: ALBUMIN 3.6 g/dL (3.5-5.0); ALBUMIN/GLOBULIN RATIO 1.5 (0.8-2.0); ANION GAP 14.9 mmol/L (8-16); BILIRUBIN,TOTAL 0.6 mg/dL (0.2-1.2); CALCIUM 9.3 mg/dL (8.4-10.2); CHOL/HDL RATIO 2.9 (3.0-3.6); CREATININE, SERUM 0.86 mg/dL (0.57-1.11); POTASSIUM 3.9 mmol/L (3.5-5.1)
[2024-12-08] MEDS: ASPIRIN 325 MG TAB PO SCH (08:18)
[2024-12-08 10:33] VITALS: BP 113/59; PULSE 74; RESP 20; TEMP 98.1; O2SAT 100
== END 2024-12-08 11:30 | disposition home or self-care (01) ==
LOC: ER 18:45 → INTOOBSV 21:00 → ERHOLD 21:00 → MED/SURG 12-08 00:34
PROVIDERS: ADMIT Internal Medicine; ATTEND Internal Medicine
DX: R42 Dizziness and giddiness (principal); R53.1 Weakness; R07.89 Other chest pain; R10.11 Right upper quadrant pain; R10.31 Right lower quadrant pain; Z86.73 Personal history of transient ischemic attack (TIA), and cerebral infarction without residual deficits; E89.0 Postprocedural hypothyroidism; E66.01 Morbid (severe) obesity due to excess calories; Z68.42 Body mass index [BMI] 45.0-49.9, adult; E11.9 Type 2 diabetes mellitus without complications; Z79.85 Long-term (current) use of injectable non-insulin antidiabetic drugs; Z79.4 Long term (current) use of insulin; Z79.84 Long term (current) use of oral hypoglycemic drugs; E78.5 Hyperlipidemia, unspecified; K76.0 Fatty (change of) liver, not elsewhere classified; K74.60 Unspecified cirrhosis of liver; M19.91 Primary osteoarthritis, unspecified site; F41.8 Other specified anxiety disorders; Z90.49 Acquired absence of other specified parts of digestive tract; Z79.899 Other long term (current) drug therapy
CPT/HCPCS: 36415 ×2; 70496; 70498; 71045; 74177; 80053 ×2; 80061; 81001; 82550; 82948 ×2; 83690 ×2; 84484; 85025 ×2; 93005; 94799 ×2; 99284; G0378 ×2; J1200; J2405 ×2; J2470; J7030; Q9967